=== PATIENT | female | born 1940 | race Caucasian/White ===

== ENCOUNTER → 2017-09-28 | Outpatient (CLI) | payer MEDICARE ==
[~2017-09-28] MED LIST: B-122500 MCG SL; BAYER BACK & B1 EACH PO; DOXE10 PO; GABA100 PO; LORA1 PO; METF500 PO; METO25ER PO; NITR100 PO; VITA25000 PO; VITAMIN B122500 MCG PO; Vitamin A and1 EACH
[2017-09-28 09:44] LABS: Adenovirus F 40/41 Not Detected (NOT DETECT); Astrovirus Not Detected (NOT DETECT); Campylobacter Sp Not Detected (NOT DETECT); Cryptosporidium Not Detected (NOT DETECT); Cyclospora Cayetanensis Not Detected (NOT DETECT); E. Coli O157 Not Detected (NOT DETECT); Entamoeba Histolytica Not Detected (NOT DETECT); Enteroaggregative E. coli-EAEC Not Detected (NOT DETECT); Enteropathogenic E. coli-EPEC Not Detected (NOT DETECT); Enterotoxigenic E. coli-ETEC Not Detected (NOT DETECT); Giardia Lamblia Not Detected (NOT DETECT); Norovirus GI/GII Not Detected (NOT DETECT); Plesiomonas Shigelloides Not Detected (NOT DETECT); Rotavirus A Not Detected (NOT DETECT); Salmonella Sp Not Detected (NOT DETECT); Sapovirus Not Detected (NOT DETECT); Shiga Toxin-prod E. coli-STEC Not Detected (NOT DETECT); Shigella/Enteroin E. coli-EIEC Not Detected (NOT DETECT); Vibrio Cholerae Not Detected (NOT DETECT); Vibrio Sp Not Detected (NOT DETECT); Yersinia Enterocolitica Not Detected (NOT DETECT)
== END | disposition home or self-care (01) ==
LOC: LAB EV 07:30
PROVIDERS: Internal Medicine
DX: R19.7 Diarrhea, unspecified (principal)
CPT/HCPCS: 87507

== ENCOUNTER 2018-12-22 06:48 | Day surgery (SDC) | payer MEDICARE, SELFPAY ==
[~2018-12-22] VITALS: Ht 167.6 cm; Wt 52.4 kg
[~2018-12-22 06:48] MED LIST changes: +ASPI325EC PO; +Ativan1 MG PO; +GABA300 PO; +LORA.5; +VITAMIN D50000 UNIT PO
== END 2018-12-22 09:19 | disposition home or self-care (01) ==
LOC: ORSCSDS 06:48
PROVIDERS: Student in an Organized Health Care Education/Training Program
PROC: 0DBL8ZX Excision of Transverse Colon, Via Natural or Artificial Opening Endoscopic, Diagnostic (ICD-10-PCS; principal; 2018-12-22 08:00)
PROC: 0DBE8ZX Excision of Large Intestine, Via Natural or Artificial Opening Endoscopic, Diagnostic (ICD-10-PCS; principal; 2018-12-22 08:00)
PROC: 0DBK8ZX Excision of Ascending Colon, Via Natural or Artificial Opening Endoscopic, Diagnostic (ICD-10-PCS; principal; 2018-12-22 08:00)
DX: Z12.11 Encounter for screening for malignant neoplasm of colon (principal); Z86.010 Personal history of colon polyps; D12.2 Benign neoplasm of ascending colon; K63.5 Polyp of colon; I10 Essential (primary) hypertension; E11.9 Type 2 diabetes mellitus without complications; Z79.899 Other long term (current) drug therapy
CPT/HCPCS: 82947; 88305; J0330; J0461; J2405; J2704; J7120

== ENCOUNTER 2019-02-12 22:50 | Inpatient (IN) | payer MEDICARE ==
[~2019-02-12] VITALS: Ht 167.6 cm; Wt 56.5 kg
[~2019-02-12 22:50] MED LIST changes: -Ativan1 MG PO; -DOXE10 PO
[2019-02-12 23:56] LABS: BASOPHILS ABSOLUTE AUTO 0.03 K/mm3 (0.00-0.23); BASOPHILS PERCENT AUTO 0 % (0-2); EOSINOPHILS ABSOLUTE AUTO 0.04 K/mm3 (0.00-0.68); EOSINOPHILS PERCENT AUTO 1 % (0-6); Hematocrit 40.3 % (33.0-51.0); Hemoglobin 13.2 g/dL (11.5-16.0); IMMATURE GRAN ABSOLUTE AUTO 0.03 K/mm3 (0.00-0.10); IMMATURE GRAN PERCENT AUTO 0 % (0-1); LYMPHOCYTES ABSOLUTE AUTO 1.45 K/mm3 (0.84-5.20); LYMPHOCYTES PERCENT AUTO 17 % (21-46); MONOCYTES ABSOLUTE AUTO 0.51 K/mm3 (0.16-1.47); MONOCYTES PERCENT AUTO 6 % (4-13); Mean Corpuscular HGB 30.1 pg (26.0-34.0); Mean Corpuscular HGB Conc 32.8 g/dL (31.5-36.5); Mean Corpuscular Volume 92 fL (80-100); Mean Platelet Volume 10.2 fL (9.1-12.4); NEUTROPHILS ABSOLUTE AUTO 6.43 K/mm3 (1.96-9.15); NEUTROPHILS PERCENT AUTO 76 % (41-73); Platelet Count 222 K/mm3 (150-400); RDW Coefficient Variation 12.6 % (11.7-14.2); RDW Standard Deviation 42.8 fL (35.1-46.3); Red Blood Cell Count 4.38 M/mm3 (3.80-5.20); White Blood Cell Count 8.49 K/mm3 (4.00-11.30)
[2019-02-13 00:10] LABS: Anion Gap 5 mmol/L (6-16); Blood Urea Nitrogen 17 mg/dL (8-24); Bun/Creatinine Ratio 27.2 (12.0-20.0); CO2, Blood 28 mmol/L (21-32); Calcium, Blood 8.9 mg/dL (8.5-10.1); Chloride, Blood 107 mmol/L (98-108); Creatinine, Blood 0.63 mg/dL (0.40-1.00); Glomerular Filtration Rate >60 (60-); Glucose, Blood 120 mg/dL (70-99); Potassium, Blood 3.6 mmol/L (3.5-5.5); Sodium, Blood 140 mmol/L (136-145)
[2019-02-13 00:11] LABS: International Normalized Ratio 1.03; Prothrombin Time Results 10.9 Sec (9.7-11.5)
--- NOTE | 2019-02-13 05:08 | NUR ---
SHIFT SUMMARY: DANITZA IS ALERT AND ORIENTED X 4. SHE EXPERIENCED A FALL AT HOME RESULTING IN A LEFT HIP FRACTURE. SHE IS NPO. HER DAUGHTER IS IN THE ROOM WITH HER. 18 G IN LAC PATENT. SHE REPORTS SHE IS SCHEDULED FOR REVASCULARIZATION WITH DR. FITZPATRICK IN MARCH FOR BLE. SHE IS PLEASANT AND COOPERATIVE, ABLE TO MAKE HER NEEDS KNOWN. SHE REPORTS THAT 4 MG MORPHINE IMPROVED HER PAIN FROM 6/10 TO 5/10. FELTON IN PLACE DRAINING CLEAR YELLOW URINE.
--- NOTE | 2019-02-13 14:28 | NUR ---
FEVER INCREASED VEWS DR. KIM NOTIFIED OF TEMP OF 101.7. TYLENOL GIVEN PER DR. KIM FOR FEVER. VEWS SCORE 3, WILL INCREASE MONITORING TO EVERY 2 HOURS.
--- NOTE | 2019-02-13 15:01 | NUR ---
PT TAKEN TO SURGERY AT THIS TIME.
--- NOTE | 2019-02-13 18:47 | NUR ---
PT ARRIVED BACK TO THE ROOM AT APPROXIMATELY 1825. PT ORIENTED AND RESPONDS APPROPRIATELY TO QUESTIONS, SHE IS DROWSY. VSS. WILL CONTINUE TO MONITOR.
--- NOTE | 2019-02-13 19:25 | NUR ---
NAUSEA PT REPORTING NAUSEA. TOM NURSE PRACTITIONER NOTIFIED, ORDERS TO BE PLACED.
--- NOTE | 2019-02-13 19:35 | NUR ---
SHIFT SUMMARY PT HAS BEEN ORIENTED AND STABLE POST OP. VSS. REPORT GIVEN TO SUSANA KNOWLES.
--- NOTE | 2019-02-14 02:55 | NUR ---
PT C/O NAUSEA TONIGHT, HAD ZOFRAN WITH REPORT INEFFECTIVE.HOWEVER REFUSED FURTHER OFFERS T0 OBTAIN DIFFERENT MED. PT ALSO REFUSING PAIN MEDS.DID RECEIVE ATIVAN PER HER REQUEST SHE TAKES IT ROUTINELY AT HOME.AT THIS TIME, PT HEARD MOANING,I IMMEDIATELY WENT TO ROOM AND FOUND PT MOVING SELF IN BED TRYING TO GET SELF OOB FOR BRP.FAMILY HAD BEEN STAYING IN ROOM,BUT NOT PRESENT AT THIS TIME.REMINDED PT OF SURGERY AND NEED TO HAVE HELP WITH OOB FOR SAFETY. CORPORATE CONCIERGE AND THIS RN ASSISTED PT TO BSC. PT WITH C/O INCREASED NAUSEA WHEN UP. FINALLY AGREED TO ACCEPT SOMETHING ELSE FOR NAUSEA. I PLACED CALL OUT TO DR QUINTERO, WAITING RETURN CALL.PT BACK TO BED AFTER BSC WITH BED ALARM ON.PT ALSO C/O ITCHING AT THIS TIME.
--- NOTE | 2019-02-14 03:21 | NUR ---
RETURN CALL PER DR QUINTERO. NOTIFIED OF CONTINUED NAUSEA. ALSO NOTIFIED OF ITCHING WHICH PT NOW REPORTS BASELINE.SINCE INITIAL CALL OUT TO DR QUINTERO,NOTED PT WITH O2 OFF.NO C/O SOB, BUT RA SATS 82-84 %, ALSO C/O ACHING TO L SIDE AND SURG SITE.NOTIFIED DR QUINTERO OF THIS WELL.RECEIVED ORDERS FOR REGLAN.CONTINUES TO REFUSE PAIN MEDS DUE TO CONCERNS OF C/O CONSTIPATION.I DISCUSSED THIS WITH PT AND SHE CONT TO REFUSE PAIN MEDS.
--- NOTE | 2019-02-14 06:38 | NUR ---
SUMMARY WITH USE OF REGLAN IV, REPORTED IMPROVEMENT IN NAUSEA UNTIL PT WOKE AND OOB. PT ACCEPTED MORPHINE FOR PAIN WITH REPORTED IMPROVEMENT/SLEEP UNTIL WOKE THEN INCREASED PAIN. PT REPORTS HEADACHES BASELINE, BUT STATES HEADACHES WORSE HERE THAN AT HOME. PUPILS REMAIN EQUAL AND REACTIVE TO LIGHT. PT AMBULATORY FOR VOIDING WITH NET TECHNICAL ARCHITECT ASSIST/GAIT BELT/WALKER, ALTHOUGH INCREASE IN GENERALIZED WEAKNESS NOTED WHEN UP.PT UNABLE TO SPECIFY IF SHE HIT HEAD OR L SIDE/RIBS WITH FALL.PTS DAUGHTER ALSO REQUESTING PO PAIN MEDS. I SPOKE WITH DR QUINTERO REGARDING ABOVE. DOCTOR ORDERED FENTANYL IV AND STATED AM HOSPITALIST WILL FOLLOW UP ON BALANCE OF CONCERNS.
--- NOTE | 2019-02-14 07:56 | NUR ---
02/14/19 0756 Carissa Phillips VERIFICATIONS, AUDITS.
[2019-02-14] MEDS ORDERED: VITAMIN D22000 UNIT PO (10:38)
[2019-02-14] MEDS ORDERED: GABA300 PO (10:45)
--- NOTE | 2019-02-14 15:47 | NUR ---
NAUSEA NAUSEA HAS SUBSIDED T/O THE DAY. PT HAS BEEN ABLE TO TOLERATE FOOD AND FLUIDS SINCE HAVING PHENERGAN AND SWITCHING TO PO PAIN MEDICATION. PT NO LONGER BECOMES NAUSEATED WHEN GETTING OOB.
--- NOTE | 2019-02-14 16:22 | NUR ---
SHIFT SUMMARY PAIN HAS BEEN MANAGED WITH PO PAIN MEDICATION THIS SHIFT. NAUSEA HAS BEEN RESOLVED AFTER PT HAD IV PHENERGAN. SHE IS A 2 PERSON ASSIST WITH TRANFERS AND WAS ABLE TO WORK WITH THERAPY TODAY. FAMILY HAS BEEN AT THE BEDSIDE FOR SUPPORT. PT HAS BEEN WEANED OFF O2. PLAN FOR SNF UPON DISCHARGE. VSS. WILL MONITOR UNTIL REPORT.
--- NOTE | 2019-02-14 18:25 | NUR ---
REPORT RECIEVED FROM BENSON RASHID AT ABOUT 1700. PT HOLLY, WILL GIVEN REPORT TO BERYL KNOWLES
--- NOTE | 2019-02-15 01:45 | NUR ---
ASSUMED CARE FROM DIANE KNOWLES. RECEIVED REPORT. PT CURRENTLY SLEEPING IN SEMI FOWLERS. CALL LIGHT IN REACH. BED ALARM ON.
--- NOTE | 2019-02-15 05:42 | NUR ---
SHIFT SUMMARY NO CHANGES SINCE ASSUMING CARE. PATIENT HAS BEEN SLEEPING IN BED, DENIES PAIN AT THIS TIME. PATIENT AWAKENS AND ANSWERS QUESTIONS APPROPRIATLY. CALL LIGHT IN REACH, BED ALARM ON.
[2019-02-15] MEDS ORDERED: TRIFLURIDINE 1% BOTHEYES (11:52)
--- NOTE | 2019-02-15 18:40 | NUR ---
SHIFT NOTE PATIENT STATES L HIP PAIN TOLERABLE WITH PO PAIN MED. DECLILNED NEURONTIN, "IT MAKES ME SLEEPY, I DONT WANT TO TAKE IT WITH THE PAIN MED.' CIRC CHECKS TO LLE WNL. PATIENT UP WITH FWW, GB, MIN ASSIST TO BR. VOIDING. TOLERATING PO W/O C/O. DR FITZPATRICK LEFT CONSENT FOR PROCEDURE WITH PATIENT THIS AFTERNOON; PATIENT SIGNED AND I WITNESSED. PLAN FOR NPO AFTER 2400 IN ANTICIPATION OF PROCEDURE. FAMILY IN MOST OF SHIFT. NO ACAUTE CHANGES.
--- NOTE | 2019-02-16 05:07 | NUR ---
SHIFT SUMMARY PATIENT HAS BEEN ABLE TO GET OOB WITH ASSISTANCE AND AMBULATE TO BR WITH FWW AND GAIT BELT. CONTINUES TO HAVE PAIN IN HER LT HIP WITH MOVEMENT. ABLE TO VOID, NO SIGNIFICANT BM SINCE PRIOR TO ADMISSION. PT STATED THAT "BM" FROM YESTERDAY WAS VERY SMALL. HER SCDS HAVE BEEN OFF SINCE 2AM, STATED THAT THEY WERE ITCHING HER AND THAT SHE WANTED A BREAK FROM THEM. WE HAVE HAD ICE ON HER LT HIP WHILE SHE IS IN BED. PATIENT HAS BEEN ASLEEP SINCE 2AM AFTER PAIN MEDICATION. NO ACUTE CHANGES.
--- NOTE | 2019-02-16 14:30 | NUR ---
PATIENT TO HEART CENTER FOR PROCEDURE AT THIS TIME. FAMILY HERE.
--- NOTE | 2019-02-16 18:44 | NUR ---
PT TO ICU VIA BED FROM THE HEART CENTER. 15CM X 27CM HEMATOMA PRESENT IN LEFT GROIN. MANUAL PRESSURE TO AREA FOR APPROX 1 HOUR POST PROCEDURE. AREA CONTINUES TO BE FIRM TO THE TOUCH, WITH BRUISING MARGINS INCREASING. DR FITZPATRICK AWARE OF STATUS OF LEFT GROIN SITE. BOTTLE CAPPER'S TO HOLD ADDITIONAL PRESSURE TO SITE. RIGHT GROIN SITE SOFT AND NON-TENDER. NO BRUISING OR BLEEDING NOTED.
--- NOTE | 2019-02-16 19:12 | NUR ---
ARRIVAL TO ICU/HANDOFF 1814 - PT ARRIVES TO ICU FROM RF TECHNICIAN. SHE IS ORIENTED TO PERSON AND PLACE. ARRIVES WITH STABLE BP WITH MAP 75-80 AND NSR, HR 90S. LARGE HEMATOMA TO L GROIN; AREA IS MARKED WITH PEN AND SKIN IS HARD TO TOUCH AND COLD. SPOKE WITH MD FITZPATRICK WHO ASKED THAT GENTLE PRESSURE HELD RIGHT ABOVE TAGADERM SEAL AND MONITOR CLOSELY FOR HARDENING OF SKIN. PRESSURE BEING HELD AT THIS TIME. PEDAL PULSES DIFFICULT TO FIND PT HAS HX OF RAYNAUDS; WILL INQUIRE FURTHER. HIP SURGICAL DRESSING IS CLEAN AND DRY. BEDSIDE, HANDOFF REPORT TO KOMAL KNOWLES AND DURING REPORT, PRESSURE BEING HELD ON L GROIN AND BP TRENDS DECLINING. CURRENTLY 60S/40S; SPOKE WITH MD FITZPATRICK AND VERBAL ORDER TO INFUSE 500 ML NS BOLUS. FELTON CATHETER INSERTED AT ARRIVAL. CARE TRANSFERRED TO KOMAL KNOWLES.
[2019-02-16 19:13] LABS: Hematocrit 29.2 % (33.0-51.0); Hemoglobin 9.3 g/dL (11.5-16.0)
--- NOTE | 2019-02-16 20:00 | NUR ---
ASSUMED CARE OF PT AT 1900. REPORT RECEIVED AT BEDSIDE. NOTED: PRESSURE BEING HELD TO LEFT GROIN ACCESS SITE BY STUDENT RN. OBSERVED GOOD TECHNIQUE. PT'S BLOOD PRESSURE DROPS AND PT SYMPTOMATIC WITH NAUSEA AND FEELING "SHAKY". BOLUS STARTED WHEREAS PT RECOVERS BLOOD PRESSURES ADEQUATELY. NO DROP IN HEART RATE TO NOTE. PT'S DAUGHTER IN ROOM, AND UPDATED ON PT'S CONDITION. DR FITZPATRICK MADE AWARE AND IS TO COME SEE PT. WILL CLOSELY MONTIOR.
--- NOTE | 2019-02-16 21:15 | NUR ---
GROIN SITE STABLE WHEREAS NO S/S BLEEDING. HAVE MAPPED OUT SHADOW DRAINAGE OVER CHG BANDAGE TO GROIN. EXISTING HEMATOMA GENTLY REDUCED WITH PRESSURE. PT TOLERATES THIS FAIR. PT DOES COMPLAIN OF BACK PAIN AT LEFT SIDE. WITH FURTHER ASSESSMENT, PT INDICATES HER PAIN IS AT LEFT HIP WHERE SHE HAS RECENTLY HAD HIP SURGERY. ICE PACK PLACED TO LEFT HIP SITE. DOPPLER PULSES DIFFICULT TO OBTAIN. DR FITZPATRICK USES DOPPLER TO OBTAIN PULSE. WILL CONTINUE TO MONITOR PT. DISCUSSED PT'S HS MEDICATIONS AND PLAN FOR BENADRYL AND ATIVAN TO HELP PT RELAX SO SHE CAN GET SOME REST TONIGHT. PT AND FAMILY ARE IN AGREEMENT WITH PLAN.
--- NOTE | 2019-02-17 02:16 | NUR ---
PT RESTING COMFORTABLY AT THIS TIME. HAVE MEDICATED PT TWICE WITH 12.5 MCG FENTANYL FOR PAIN WITH GOOD RELIEF. PT'S BLOOD PRESSURES MAINTAIN WNL AFTER FENTANYL. DAUGHTER SPENDING THE NIGHT WITH PT. ACCORDING TO FAMILY PT USES ATIVAN AT HOME DAILY SECONDARY TO ANXIETY. HAVE REASSURED PT OFTEN. PT HAS COMPLETED SIX HOURS POST GROIN BEING STABILIZE. HEMOSTATIS ACHIEVED. HAVE INSTRUCTED PT THAT SHE CAN NOW MOVE IN BED SHE FEELS. INSTRCUTED PT AND DAUGHTER IF ANY BLEEDING OCCURS, SWELLING AT GROIN SITE. LOSS OF SENSATION TO LEFT LEG OR ANY OTHER CONCERNS TO NOTIFY STAFF IMMEDIATELY. CHECK OF GROIN SITE REVEALS STABLE. PT DOES HAVE GROIN ECCHYMOSIS BUT NO NEW HEMATOMA. NO OOZING AT SITE. WILL CONITNUE TO MONITOR PT.
--- NOTE | 2019-02-17 06:53 | NUR ---
PT HAS HAD NO REBLEEDS THIS NIGHT. HAS BEEN MEDICATED WITH 12.5 MCG FENTANYL TWICE WITH FAIR RELIEF. ONCE THIS MORNING WITH 25 MCG FENTANYL. PT CURRENTLY RESTING. IS MAINTAINING BLOOD PRESSURES WITH MAP > 65. REMAINS WITH POST-TIBIAL DOPPLER PULSE, UNABLE TO OBTAIN PEDAL PULSE. THIS IS UNCHANGED FROM WHEN DR FITZPATRICK ASSESSED LATE EVENING. NO OOZING AT SITES LEFT OR RIGHT GROIN. DAUGHTER HAS SPENT THE NIGHT. WILL CONTINUE TO MONITOR PT.
--- NOTE | 2019-02-17 07:37 | NUR ---
DR. GALVEZ AT BEDSIDE FOR ROOUNDS. PT'S DAUGHTER ADRIAN ALSO AT BEDSIDE. PROVIDER DISCUSSING DICHARGE TO SNF TODAY, DAUGHTER FEELS THAT IT IS TOO SOON FOR PT TO BE D/C'D, CONSIDERING PROCEDURES AND HYPOTENSION O/N. WILL CHECK LABS THIS MORNING, DR. BOYD WILL ROUND LATER.
[2019-02-17 08:19] LABS: Hematocrit 22.8 % (33.0-51.0); Hemoglobin 7.4 g/dL (11.5-16.0)
[2019-02-17 08:52] LABS: Albumin, Blood 2.5 g/dL (3.4-5.0); Anion Gap 6 mmol/L (6-16); Blood Urea Nitrogen 10 mg/dL (8-24); Bun/Creatinine Ratio 21.4 (12.0-20.0); CO2, Blood 25 mmol/L (21-32); CPK Creatine Kinase 183 U/L (26-193); Calcium, Blood 7.2 mg/dL (8.5-10.1); Chloride, Blood 110 mmol/L (98-108); Creatinine, Blood 0.47 mg/dL (0.40-1.00); Glomerular Filtration Rate >60 (60-); Glucose, Blood 120 mg/dL (70-99); Phosphorus, Blood 2.6 mg/dL (2.5-4.9); Potassium, Blood 3.9 mmol/L (3.5-5.5); Sodium, Blood 141 mmol/L (136-145)
--- NOTE | 2019-02-17 09:53 | NUR ---
FELTON CATHETER D/C'D AT 0940, TOLERATED WELL.
--- NOTE | 2019-02-17 15:46 | NUR ---
PATIENT TRANSFERRED TO ROOM 213 VIA HOSPITAL BED AT 1535. REPORT GIVEN TO LEDA KNOWLES.
[2019-02-17 16:28] LABS: Hematocrit 28.4 % (33.0-51.0); Hemoglobin 9.2 g/dL (11.5-16.0)
--- NOTE | 2019-02-17 16:43 | NUR ---
ARRIVAL TO UNIT AT APPROX 1550 PT IS ALERT AND ORIENTED AND PLEASANT. PT REPORTED 8/10 PAIN TO HER LEFT LEG GROIN SITE AND WAS MEDICATED WITH 2 NORCO. LEFT GROIN SITE WAS OUTLINED BY COMMUNICATIONS ADMINISTRATOR AND NO INCREASED BRUISING IS NOTED. R GROIN SITE IS CDI. AQUACEL DRESSING TO LEFT HIP IS CDI. ENCOURAGING PT TO DRINK FLUIDS. PLAN IS FOR POSSIBLE SNF DISCHARGE TOMORROW. CALL LIGHT WITHIN REACH. FAMILY AT BEDSIDE FOR SUPPORT.
[2019-02-18 04:08] LABS: Hemoglobin 8.1 g/dL (11.5-16.0)
--- NOTE | 2019-02-18 04:16 | NUR ---
Patient A/O x4. VSS. Complaints of pain to Bilat thigh, medicated as ordered. Strong Posterior tibial pulse, but Unable to obtain pedal pulse on left foot with doppler. Patient complains of numbness to bilateral lower extremeties. Pulses strong in RLE. Patient up to Bedside commode with SBA and FWW. Voiding freely.
[2019-02-18 10:14] LABS: Hemoglobin 8.4 g/dL (11.5-16.0)
[2019-02-18 18:43] LABS: Hematocrit 27.1 % (33.0-51.0); Hemoglobin 8.7 g/dL (11.5-16.0)
--- NOTE | 2019-02-18 19:28 | NUR ---
SHIFT SUMMARY PAIN HAS BEEN MANAGED WITH PO PAIN MEDICATION. PT IS A 1 ASSIST WHEN OOB. SHE WORKED WITH THERAPY TODAY. VSS. WILL MONITOR UNTIL REPORT TO ONCOMING RN.
[2019-02-19 02:18] LABS: Hematocrit 25.5 % (33.0-51.0); Hemoglobin 8.2 g/dL (11.5-16.0)
--- NOTE | 2019-02-19 03:32 | NUR ---
Patient displaying confusion, attempting to get up without assistance. Placed on bed alarm. VSS. Complaints of pain to hip, itching, and anxiety; medicated as ordered. Up to bedside commode with SBA and FWW. Aquacell dressing DCI. Dressing to R thigh DCI, Dressing to L thigh has scant blood. Able to palpate bilateral pedal pulses.
--- NOTE | 2019-02-19 18:11 | NUR ---
SUMMARY C/O NAUSEA BEFORE DINNER, CBG 49, ORANGE JUICE GIVEN, PT ENCOURAGED TO EAT, PT VOMITTED, ZOFRAN GIVEN, PT CURRENTLY EATING A POPSICLE, REFUSED ANY OTHER FOODS TO EAT, CBG RECHECKED, CURRENTLY AT 151, DENIES ANY OTHER NEW SYMPTOMS OR DISCOMFORT, OOB TO CHAIR MOST OF THE DAY, 1 PERSON ASSIST TO THE BSC, PAIN MOSTLY ON L GROIN AREA, REPORTS HAVING ADEQUATE PAIN CONTROL WITH 2 NORCOS, NO OTHER CHANGES THIS SHIFT.
[2019-02-20 03:43] LABS: Hemoglobin 8.1 g/dL (11.5-16.0)
--- NOTE | 2019-02-20 04:01 | NUR ---
SHIFT SUMMARY PT [id number], PLACED ON 3L OF 02 R/T LOW SATS. SATS IN THE 90'S AFTER 3L. PATIENT C/O OF SOME PAIN ON EXERTION, DENIES PAIN WHILE RESTING. COMPLAINTS OF FEELING ANXIOUS EARLY IN SHIFT MEDICATED WITH ATIVAN PER EMAR. PATIENT TRANSFERING TO [facility] WITH MINIMAL 1 ASSIST. LARGE BRUISING ON LEFT FLANK/GROIN PRESENT SINCE REVASCULARIZATION. PATIENT ATTEMPTING TO GET OUT OF BED ON HER OWN DURING SHIFT, BED ALARM SPACE AND MISSILE OPERATIONS SPACELIFT LIGHT IN REACH.
[2019-02-20 04:04] LABS: Anion Gap 5 mmol/L (6-16); Blood Urea Nitrogen 8 mg/dL (8-24); CO2, Blood 32 mmol/L (21-32); Calcium, Blood 8.1 mg/dL (8.5-10.1); Chloride, Blood 103 mmol/L (98-108); Glomerular Filtration Rate >60 (60-); Glucose, Blood 136 mg/dL (70-99); Potassium, Blood 3.7 mmol/L (3.5-5.5); Sodium, Blood 140 mmol/L (136-145)
--- NOTE | 2019-02-20 04:33 | NUR ---
TEMP TEMP OF 100.6 AND ELEVATED HR DURING MORNING VITALS. TYLENOL GIVEN AND PATIENT REPOSITIONED. CONPLAINS OF FEELING HOT. WILL MONITOR FOR EFFECTIVENESS OF TYLENOL
--- NOTE | 2019-02-20 05:06 | NUR ---
TEMP OF 98.6 AFTER TYLENOL GIVEN. PATIENT RESTING IN BED, DENIES NEEDS AT THIS TIME.
[2019-02-20 10:31] LABS: BASOPHILS ABSOLUTE AUTO 0.03 K/mm3 (0.00-0.23); BASOPHILS PERCENT AUTO 0 % (0-2); EOSINOPHILS ABSOLUTE AUTO 0.08 K/mm3 (0.00-0.68); EOSINOPHILS PERCENT AUTO 1 % (0-6); Hematocrit 25.7 % (33.0-51.0); Hemoglobin 8.2 g/dL (11.5-16.0); IMMATURE GRAN ABSOLUTE AUTO 0.03 K/mm3 (0.00-0.10); IMMATURE GRAN PERCENT AUTO 0 % (0-1); LYMPHOCYTES ABSOLUTE AUTO 1.28 K/mm3 (0.84-5.20); LYMPHOCYTES PERCENT AUTO 14 % (21-46); MONOCYTES ABSOLUTE AUTO 0.95 K/mm3 (0.16-1.47); MONOCYTES PERCENT AUTO 10 % (4-13); Mean Corpuscular HGB 30.6 pg (26.0-34.0); Mean Corpuscular HGB Conc 31.9 g/dL (31.5-36.5); Mean Platelet Volume 10.8 fL (9.1-12.4); NEUTROPHILS ABSOLUTE AUTO 6.86 K/mm3 (1.96-9.15); NEUTROPHILS PERCENT AUTO 74 % (41-73); Platelet Count 288 K/mm3 (150-400); RDW Coefficient Variation 14.2 % (11.7-14.2); RDW Standard Deviation 47.3 fL (35.1-46.3); Red Blood Cell Count 2.68 M/mm3 (3.80-5.20); White Blood Cell Count 9.23 K/mm3 (4.00-11.30)
--- NOTE | 2019-02-20 10:31 | NUR ---
DISCUSSED PT'S STATUS WITH DR YADAV. PT BEING PAINFULL AND NAUSEOUS BUT DOES NOT WISH TO TAKE OR HAVE ANYTHING FOR EITHER.
[2019-02-20 10:32] LABS: Mean Corpuscular Volume 96 fL (80-100)
[2019-02-20 12:57] LABS: Source, Urine Voided
[2019-02-20 12:58] LABS: Bilirubin, Urine Neg (Neg); Blood, Urine 2+ (Neg); Glucose Qualitative, Urine Neg (Neg); Ketones, Urine Neg (Neg); Leukocyte Esterase, Urine Neg (Neg); Nitrite, Urine Neg (Neg); Protein, Urine Neg (Neg); Urobilinogen, Urine NORM (Normal)
[2019-02-20 13:16] LABS: Appearance, Urine Clear (Clear); Color, Urine Yellow (P-Yellow)
[2019-02-20 13:20] LABS: Amorphous Mod (0-Heavy); Bacteria Mod /hpf; Squamous Epithelial Cells Rare /hpf (Few)
--- NOTE | 2019-02-20 15:28 | NUR ---
REPORT GIVEN TO HELENA AT [facility]
--- NOTE | 2019-02-20 16:10 | NUR ---
DISCHARGE: PT EATING AND DRINKING BETTER THIS AFTERNOON. PT REPORTS DRINKING WELL. PT VOIDING. PT BEEN GIVEN BOWEL CARE. PT HAD RECENT BM. PT HAS PROTECTIVE DRESSINGS TO HEELS. NO SORE NOTED ON BOTTOM EARLIER TODAY. FAMILY PRESENT. PT OUT BY TRANSPORT, FAMILY REPORTS WILL TAKE BELONGINGS. CIVIL ENGINEER HELPER ASSISTED WITH DISCHARGE. TRANSPORT SENT WITH PAPERWORK AND DRESSINGS.
== END 2019-02-20 16:04 | disposition home or self-care (01) | DRG 481 ==
LOC: ER 22:50 → SURS 02-13 03:17 → ICUE 02-16 16:37 → SURS 02-17 15:58
PROVIDERS: Emergency Medicine; Hospitalist; Internal Medicine; Orthopaedic Surgery; Radiology Diagnostic Radiology; ADMIT Internal Medicine
PROC: 0QS734Z Reposition Left Upper Femur with Internal Fixation Device, Percutaneous Approach (ICD-10-PCS; principal; 2019-02-13 15:45)
PROC: 047J3DZ Dilation of Left External Iliac Artery with Intraluminal Device, Percutaneous Approach (ICD-10-PCS; 2019-02-16)
PROC: 047D3DZ Dilation of Left Common Iliac Artery with Intraluminal Device, Percutaneous Approach (ICD-10-PCS; 2019-02-16)
PROC: 047F3DZ Dilation of Left Internal Iliac Artery with Intraluminal Device, Percutaneous Approach (ICD-10-PCS; 2019-02-16)
PROC: 30233N1 Transfusion of Nonautologous Red Blood Cells into Peripheral Vein, Percutaneous Approach (ICD-10-PCS; 2019-02-17)
DX: S72.002A Fracture of unspecified part of neck of left femur, initial encounter for closed fracture (principal); D62 Acute posthemorrhagic anemia; W19.XXXA Unspecified fall, initial encounter; I10 Essential (primary) hypertension; F17.210 Nicotine dependence, cigarettes, uncomplicated; E11.51 Type 2 diabetes mellitus with diabetic peripheral angiopathy without gangrene; R09.02 Hypoxemia
CPT/HCPCS: 36415; 36430; 37221; 37223; 51702; 71046; 73502; 73562-LT; 73700; 75625; 75716; 75774; 76937; 80048; 80069; 81001; 82550; 82565; 82947; 83036; 85014; 85018; 85025; 85610; 86850; 86900; 86901; 86923; 87086; 93005; 93010; 96374-59; 96375-59; 96376; 97110; 97116; 97162; 97165; 97530; 97535; 99152; 99153; 99285-25; A9270; A9270-GY; C1713; C1725; C1760; C1769; C1773; C1874; C1876; C1887; C1894; J0171; J0690; J1100; J1644; J1650; J1940; J2060; J2250; J2270; J2405; J2550; J2704; J2720; J2765; J3010; J3480; J7030; J7120; P9016; Q0163; Q9967

== ENCOUNTER 2019-02-22 09:06 | Inpatient (IN) | payer MEDICARE, OTHER ==
[~2019-02-22] VITALS: Ht 167.6 cm; Wt 58.0 kg
[~2019-02-22 09:06] MED LIST changes: +TRIFLURIDINE 1% BOTHEYES; +VITAMIN D22000 UNIT PO
[2019-02-22] MEDS ORDERED: DOXE10 PO ×2 (09:21→14:58)
[2019-02-22] MEDS ORDERED: ASPI81CH PO (09:21)
[2019-02-22] MEDS ORDERED: CEPH250A PO ×2 (09:22→14:50)
[2019-02-22] MEDS ORDERED: GABA300 PO ×2 (09:24→09:32)
[2019-02-22] MEDS ORDERED: LORA.5 PO (09:32)
[2019-02-22] MEDS ORDERED: Acetaminophen650 M1 PO (09:34)
[2019-02-22 10:11] LABS: BASOPHILS ABSOLUTE AUTO 0.03 K/mm3 (0.00-0.23); BASOPHILS PERCENT AUTO 0 % (0-2); EOSINOPHILS ABSOLUTE AUTO 0.11 K/mm3 (0.00-0.68); EOSINOPHILS PERCENT AUTO 1 % (0-6); Hematocrit 25.7 % (33.0-51.0); Hemoglobin 8.1 g/dL (11.5-16.0); IMMATURE GRAN ABSOLUTE AUTO 0.04 K/mm3 (0.00-0.10); IMMATURE GRAN PERCENT AUTO 1 % (0-1); LYMPHOCYTES PERCENT AUTO 12 % (21-46); MONOCYTES PERCENT AUTO 9 % (4-13); Mean Corpuscular HGB 29.6 pg (26.0-34.0); Mean Corpuscular HGB Conc 31.5 g/dL (31.5-36.5); Mean Corpuscular Volume 94 fL (80-100); Mean Platelet Volume 9.5 fL (9.1-12.4); NEUTROPHILS ABSOLUTE AUTO 6.73 K/mm3 (1.96-9.15); NEUTROPHILS PERCENT AUTO 77 % (41-73); Platelet Count 352 K/mm3 (150-400); RDW Coefficient Variation 14.3 % (11.7-14.2); RDW Standard Deviation 47.4 fL (35.1-46.3); Red Blood Cell Count 2.74 M/mm3 (3.80-5.20); White Blood Cell Count 8.71 K/mm3 (4.00-11.30)
[2019-02-22 10:20] LABS: Anion Gap 5 mmol/L (6-16); Blood Urea Nitrogen 7 mg/dL (8-24); Bun/Creatinine Ratio 14.3 (12.0-20.0); CO2, Blood 29 mmol/L (21-32); Calcium, Blood 8.1 mg/dL (8.5-10.1); Chloride, Blood 107 mmol/L (98-108); Creatinine, Blood 0.49 mg/dL (0.40-1.00); Glomerular Filtration Rate >60 (60-); Glucose, Blood 123 mg/dL (70-99); Potassium, Blood 3.9 mmol/L (3.5-5.5); Sodium, Blood 141 mmol/L (136-145)
[2019-02-22] MEDS ORDERED: Ventolin/Prove6.7 GM (13:57)
[2019-02-22] MEDS ORDERED: ERGO50000 PO (14:00)
[2019-02-22] MEDS ORDERED: DOCU100 PO (14:52)
[2019-02-22] MEDS ORDERED: Nicoderm Cq1 EAC1 TD (14:53)
[2019-02-22] MEDS ORDERED: BISA10S PR (14:57)
[2019-02-22] MEDS ORDERED: Norco 7.5-3251 EACH PO (14:59)
[2019-02-22] MEDS ORDERED: Milk Of Ma400 MG/5 M PO (15:00)
[2019-02-22] MEDS ORDERED: Fleet Enema132 ML PR (15:01)
--- NOTE | 2019-02-22 19:38 | NUR ---
PT QUITE PLEASANT SINCE ADMIT. MED FOR PAIN AFTER ADMIT.. ISIDRO FROM ER STATES HE SPOKE TO DR BOYD AND IS DOING INTERVENTION TOMORROW. NPO MIDNITE UNTIL KNOW WHEN INTERVENTION. HEMATOMA ON LEFT LEG AT GROIN SITE. IS MARKED. SHE JUST WAS D/C 1-2 DAYS AGO. SITE IS HARD. BRUISED. PIC TO BE TAKEN. NO OTHER CONCERNS AT THIS TIME. BED IN LOW POSITION ,CALL LITE IN [facility], CALLS APPROP
--- NOTE | 2019-02-23 00:02 | NUR ---
0002: PT MADE NPO IN ANTICIPATION OF PROCEDURE LATER THIS DAY. CALL LIGHT IN REACH, SLEEPING SOUNDLY.
[2019-02-23 07:07] LABS: BASOPHILS ABSOLUTE AUTO 0.03 K/mm3 (0.00-0.23); BASOPHILS PERCENT AUTO 0 % (0-2); EOSINOPHILS PERCENT AUTO 1 % (0-6); Hematocrit 27.8 % (33.0-51.0); Hemoglobin 8.5 g/dL (11.5-16.0); IMMATURE GRAN ABSOLUTE AUTO 0.03 K/mm3 (0.00-0.10); IMMATURE GRAN PERCENT AUTO 0 % (0-1); LYMPHOCYTES ABSOLUTE AUTO 1.23 K/mm3 (0.84-5.20); LYMPHOCYTES PERCENT AUTO 17 % (21-46); MONOCYTES ABSOLUTE AUTO 0.77 K/mm3 (0.16-1.47); MONOCYTES PERCENT AUTO 11 % (4-13); Mean Corpuscular HGB Conc 30.6 g/dL (31.5-36.5); Mean Corpuscular Volume 95 fL (80-100); Mean Platelet Volume 9.4 fL (9.1-12.4); NEUTROPHILS PERCENT AUTO 71 % (41-73); Platelet Count 403 K/mm3 (150-400); RDW Coefficient Variation 14.2 % (11.7-14.2); RDW Standard Deviation 47.3 fL (35.1-46.3); Red Blood Cell Count 2.93 M/mm3 (3.80-5.20); White Blood Cell Count 7.36 K/mm3 (4.00-11.30)
[2019-02-23 07:21] LABS: International Normalized Ratio 1.03; Prothrombin Time Results 10.9 Sec (9.7-11.5)
[2019-02-23 07:28] LABS: Alanine Aminotransfer (ALT/SGP 17 U/L (12-78); Albumin, Blood 2.6 g/dL (3.4-5.0); Albumin/Globulin Ratio 0.7 (0.8-1.8); Alk Phos 75 U/L (50-136); Anion Gap 8 mmol/L (6-16); Aspartate Aminotrans (AST/SGOT 19 U/L (12-37); Bilirubin, Total 0.7 mg/dL (0.1-1.0); Blood Urea Nitrogen 8 mg/dL (8-24); Bun/Creatinine Ratio 15.9 (12.0-20.0); CO2, Blood 28 mmol/L (21-32); Calcium, Blood 8.4 mg/dL (8.5-10.1); Chloride, Blood 105 mmol/L (98-108); Globulin, Blood 3.9 g/dL (2.2-4.0); Glomerular Filtration Rate >60 (60-); Glucose, Blood 121 mg/dL (70-99); Potassium, Blood 3.9 mmol/L (3.5-5.5); Sodium, Blood 141 mmol/L (136-145); Total Protein, Blood 6.5 g/dL (6.4-8.2)
[2019-02-23 13:32] LABS: Hematocrit 27.6 % (33.0-51.0); Hemoglobin 8.7 g/dL (11.5-16.0)
--- NOTE | 2019-02-23 14:15 | NUR ---
RETURNED FROM LUNCH BREAK AND PT HAD BEEN PICKED UP BY HEART CENTER STAFF AND TRANSFERED TO [facility]. CALLED PCU NURSE KAROLINA TO ATTEMPT TO GIVE REPORT. AWAITING RETURN CALL.
--- NOTE | 2019-02-23 14:33 | NUR ---
REPORT GIVEN TO BENSON TURCIOS IN PCU.
[2019-02-23 16:52] LABS: BASOPHILS ABSOLUTE AUTO 0.03 K/mm3 (0.00-0.23); BASOPHILS PERCENT AUTO 0 % (0-2); EOSINOPHILS ABSOLUTE AUTO 0.06 K/mm3 (0.00-0.68); EOSINOPHILS PERCENT AUTO 1 % (0-6); Hematocrit 25.4 % (33.0-51.0); Hemoglobin 7.8 g/dL (11.5-16.0); IMMATURE GRAN ABSOLUTE AUTO 0.04 K/mm3 (0.00-0.10); IMMATURE GRAN PERCENT AUTO 1 % (0-1); LYMPHOCYTES ABSOLUTE AUTO 1.29 K/mm3 (0.84-5.20); LYMPHOCYTES PERCENT AUTO 16 % (21-46); MONOCYTES ABSOLUTE AUTO 0.63 K/mm3 (0.16-1.47); MONOCYTES PERCENT AUTO 8 % (4-13); Mean Corpuscular HGB 29.3 pg (26.0-34.0); Mean Corpuscular HGB Conc 30.7 g/dL (31.5-36.5); Mean Corpuscular Volume 96 fL (80-100); Mean Platelet Volume 9.4 fL (9.1-12.4); NEUTROPHILS ABSOLUTE AUTO 5.92 K/mm3 (1.96-9.15); NEUTROPHILS PERCENT AUTO 74 % (41-73); Platelet Count 439 K/mm3 (150-400); RDW Standard Deviation 48.6 fL (35.1-46.3); Red Blood Cell Count 2.66 M/mm3 (3.80-5.20); White Blood Cell Count 7.97 K/mm3 (4.00-11.30)
--- NOTE | 2019-02-23 18:30 | NUR ---
PT ARRIVED FROM AT 1703 VIA HOSPITAL BED. FTF REPORT RECEIVED FROM BOONE KNOWLES. C/O 01/26 PAIN IN LLE; MEDICATED WITH FENTANYL AND PERCOCET WITH MODERATE EFFECT. R GROIN SITE SOFT, NO HEMATOMA, NO BLEEDING. PREVIOUS L HEMATOMA UNCHANGED PER PATIENT AND FAMILY REPORT; HEMATOMA IS FIRM WITH SURROUNDING ECCHYMOSIS IN GROIN, INNER THIGH, L THIGH, AND UP BACK ON L SIDE. NSR, HR 80-100. LLE PT PULSE FOUND BY DOPPLER, THREADY AND MONOPHASIC, FOOT COOL TO TOUCH WITH CALF SLIGHTLY WARMER, SKIN PALE. ANTICIPATING ORDER FOR HEPARIN GTT. ORDER ENTERED FOR 2 UNITS PRBC TRANSFUSION FOR HGB < 8. FAMILY AT BEDSIDE. PATIENT INSTRUCTED NOT TO BEND LEG OR RAISE HEAD TO DRINK WATER; FLOYD NEED REINFORCEMENT.
[2019-02-23 19:19] LABS: International Normalized Ratio 1.13; Prothrombin Time Results 11.8 Sec (9.7-11.5)
--- NOTE | 2019-02-23 20:04 | NUR ---
PT RESTING IN BED. DAUGHTER AT BEDSIDE. PT HAD ANGIOPLASTY OF THE L LEG TODAY AND HAS R GROIN ACCESS SITE. PEDAL PULSES FOUND BY DOPPLER. PT STATES SHE HAS NUMBNESS, TINGLING, BURNING, AND ITCHING IN BOTH FEET THAT HAS BEEN A CHRONIC ISSUE. FEET ARE SENSITIVE TO TOUCH. L GROIN IS BRUISED FROM OLD ACCESS SITE. THERE IS BRUISING OF VARIOUS COLOR RANGING FROM GREEN TO DEEP PURPLE. BRUISING IS TO INNER THIGH, BACK OF LEG, AND UP TO FLANK ON THE L SIDE. THERE IS A HARD LUMP AT PUNCTURE SITE AND SKIN IS HARD DOWN IN TO INNER THIGH. PT AND DAUGHTER STATE THIS HAPPENED AFTER LAST ANGIO A WEEK AGO AND PT WAS RELEASED TO REHAB. PT STATES THE LUMP DOES NOT FEEL DIFFERENT IN SIZE FROM THE LAST FEW DAYS. PHOTOS IN CHART. HEPARIN GTT AND BOLUS STARTED PER DR. FITZPATRICK. WILL BE TRANSFUSING 2 UNITS OF PRBC'S WELL FOR HGB OF 7.8.
--- NOTE | 2019-02-23 22:06 | NUR ---
PT RESTING IN BED. PRBC'S TRANSFUSING. HAD TO PUT HEPARIN ON STANDBY FOR ABOUT 20 MINS DUE TO IV ACCESS. NOTIFIED PHARMACIST THAT SAID TO RESTART IT AND CHECK PTT AT 0300. POWERGLIDE PLACED TO R UPPER ARM. DR. FITZPATRICK CAME IN TO CHECK ON PT AND GAVE THE OK TO SIT UP AND MOVE AROUND A LITTLE. PT EATING A SNACK NOW BEFORE SHE TAKES HER NIGHT MEDS.
[2019-02-24 04:03] LABS: Hematocrit 28.3 % (33.0-51.0); Hemoglobin 9.1 g/dL (11.5-16.0)
--- NOTE | 2019-02-24 06:48 | NUR ---
SUMMARY PT RESTING IN BED. RECEIVED 2 UNITS OF PRBC'S LAST NIGHT. H&H STABLE THIS AM. PT HAS R GROIN ACCESS SITE THAT HAS BEEN STABLE ALL NIGHT. L GROIN HAS OLD ACCESS SITE THAT IS FIRM AND EXTENDS INTO INNER THIGH. THAT SITE HAS NOT CHANGED. DRESSING TO L HIP FROM HIP SURGERY IS C/D/I. HEPARIN GTT MANAGED BY PHARMACY. PT IS ABLE TO USE BEDPAN WITHOUT DIFFICULTY AND IS SHIFTING WEIGHT IN BED. NO SIGN OF DISTRESS THIS AM.
--- NOTE | 2019-02-24 08:30 | NUR ---
GROIN SITES, LEFT HIP INCISION, AND HEPARIN DRIP ASSESSED AND VERIFIED WITH OFF GOING RN. PT WAS RESTING IN BED WITH C/O OF SHARP PAIN TO LEFT FOOT. TONJA EXTREMITIES WERE PINK, WARM AND <3SEC CAP REFILL. PT HAS C/O CONSTIPATION, WILL DISCUSS OPTIONS WITH MD. FAMILY IS AT BEDSIDE VISITING.
[2019-02-24 16:10] LABS: Hematocrit 25.6 % (33.0-51.0); Hemoglobin 8.3 g/dL (11.5-16.0)
--- NOTE | 2019-02-24 17:01 | NUR ---
CALLED DR FITZPATRICK FOR UPDATE ON PT AND CHECK TO SEE IF SHE CAN DOWN GRADE. FROM HIS PERSPECTIVE PT IS OKAY TO TRANSFER OUT OF ICU WITH HEPARIN GTT AND CONTINUE TO MONITOR FOR BLEEDING/WORSENING HEMATOMA. INFORMED DR FITZPATRICK THAT FAMILY WISHES TO SPEAK WITH HIM AND HE STATED HE WOULD FOLLOW UP WITH FAMILY. CALLED DR GIVENS AND UPDATED HER ON WHAT DR FITZPATRICK HAD SAID ABOUT PT TRANSFER. OKAY TO TRANSFER PT TO SURGICAL FLOOR WITH ORDERS TO CONTINUE TO MONITOR BILAT GROIN SITE. DR GIVENS WAS UPDATE ON HEMAGLOBIN CHANGE OF 9.1 TO 8.3, NO ORDERS RECEIVED FOR THAT.
--- NOTE | 2019-02-24 18:24 | NUR ---
SHIFT SUMMARY PT HAD IMPROVED PAIN CONTROL TODAY, WITH ROUNTINE USE OF PRN PAIN MEDS. PT WAS ABLE TO TOLERATE WORKING WITH PT WITH THIS REGIMEN. PT CONTINUES ON HEPARIN GTT PER PHARMACY'S DOSING. PT'S BRUISING, HEMATOMAS REMAIN UNCHANGED. PT HAS ORDERS TO TRANSFER TO SURGICAL FLOOR ONCE A BED IS AVAILABLE. PER FAMILY'S REQUEST, WAS ABLE TO COORDINATE A MEETING WITH CASE MANAGEMENT FOR POSSIBLE HOME CARE. PT STATED THAT LEFT HIP DRESSING WAS CHANGED YESTERDAY. DRESSING IS C/D/I. REMINDED PT TO FOLLOW POST HIP PRECAUTIONS.
--- NOTE | 2019-02-24 19:20 | NUR ---
ASSUMED CARE OF PT, BEDSIDE REPORT RECEIVED. HEPARIN GTT VERIFIED INFUSING AT 17 UNITS/KG WITH OFFGOING RN. PT IS ALERT AND ORIENTED RECLINING IN BED. SPEAKING IN FULL SENTENCES, DENIES CURRENT N/V. DENIES NEEDS AT THIS TIME. WILL MONITOR.
[2019-02-25 04:27] LABS: Hematocrit 28.3 % (33.0-51.0); Hemoglobin 9.1 g/dL (11.5-16.0)
--- NOTE | 2019-02-25 04:40 | NUR ---
PT TO ROOM 354, BEDSIDE REPORT COMPLETED WITH RECEIVING RN.
--- NOTE | 2019-02-25 06:21 | NUR ---
SHIFT SUMMARY PATIENT TRANSFERRED FROM ICU. DENTAL NURSE HERMILO CAME WITH PATIENT AND WE BOTH LOOKED AT PATIENTS RIGHT AND LEFT GROIN ACCESS SITES AND EXTENSIVE BRUISING. HEPARIN DRIP CHECKED WITH ICU NURSE AND THEN WITH FLOOR NURSE WHEN DOSE ADJUSTED. IV CHECKED AND PATENT. PATIENT TREATED FOR PAIN. WILL CONTINUE TO MONITOR
--- NOTE | 2019-02-25 17:56 | NUR ---
Shift Summary A/Ox4. Conversational lady who is pleasant and cooperative with care. Calls appropriately. Medicated for 11/26 left groin and foot pain per EMAR, pt states "it is not doing anything" to manage her pain. Pt also concern about her constipation. Pt had suppository given 02/24/19 and also had a BM the same day. She has been declining her miralax because she feels it causes discomfort in her throat when she swallows it. Will give suppository tonight as patient allows and update oncoming RN. Denies N/V. Up frequently t/o day to use bedside commode. Physical therapy worked with patient and ambulated in hallway, tolerated well. No other changes this shift.
--- NOTE | 2019-02-26 05:03 | NUR ---
SHIFT SUMMARY: PT A&O X4 THROUGHOUT SHIFT. VS WNL. PT C/O PAIN IN LEFT GROIN AREA. PAIN MANAGED WITH PERCOCET 5MG PER EMAR. PT CONCERNED THAT HER PAIN IS NOT IMPROVING. SKIN TO L GROIN IS SWOLLEN AND TENDER. AQUACEL TO LEFT HIP IS CDI. PT OUT OF BED TO BATHROOM WITH 1 ASSIST AND FWW. TOLERATING ACTIVITY WELL. PT REPORTS BEING CONSTIPATED AND APPEARS ANXIOUS. PT GIVEN A SUPPOSITORY. PT HAD ONE SMALL SOFT PELLET SIZED BM.
[2019-02-26 08:50] LABS: Hematocrit 29.3 % (33.0-51.0); Hemoglobin 9.4 g/dL (11.5-16.0)
--- NOTE | 2019-02-26 18:03 | NUR ---
SUMM- PT ALERT AND ORIENTED. USES CALL LIGHT. GETS UP TO BSC TO VOID. HAVING DIFFICULTY AMBULATING RELATED TO PAIN IN L GROIN. HEMATOMA HARD AND PURPLE, EXTENDING INTO L FLANK AND BACK. PAINFUL TO SIT OR AMBULATE. STATED IN BED MOST OF THE DAY WITH LEG EXTENDED. PAIN CONTROLLED WITH PERCOCET. MEDICATED WITH ATIVAN X2 TODAY FOR MOD ANXIETY. PT HAS LG FAMILY AND GREAT SUPPORT, A LOT OF VISITORS TODAY.
--- NOTE | 2019-02-27 04:07 | NUR ---
SHIFT SUMMARY AOX4. LS CLEAR, DENIES SOB. NO C/O NAUSEA. PAIN RATED 6-810. 1 PERCOCET @ 2130 AND 0100, ASSUMING PT WILL NEED ANOTHER CLOSER TO SHIFT CHANGE. L GROIN IS BRUISED AND SWOLLEN, AREA MARKED WITH SKIN PEN. L HIP AQUACEL IS C/D/I. L FOOT IS SWOLLEN AND STIFF. L ARM IS BRUISED. 1 ASSIST TO BSC, PT UP SEVERAL TIMES THROUGHOUT THE NIGHT. BEDALARM. TELE SR 98. R FA AND R UA POWERGLIDE SL. BLOOD GLUCOSE BEFORE MEALS. 1 MG ATIVAN GIVEN @ 0100. VSS ON RA. PLAN TO DC TODAY WITH HOME HEALTH, SHERLY SOUSA FROM IS WORKING ON GETTING HOMEHEALTH ARRANGED.
[2019-02-27 15:09] LABS: CHOL/HDL RATIO 4.3; Cholesterol 145 mg/dL (50-200); HDL Cholesterol 34 mg/dL (>39); LDL/HDL RATIO 2.6; Low Density Lipoprotein Chol 87 mg/dL (0-110); Triglycerides 121 mg/dL (30-160); Very Low Density Lipoprot Chol 24 mg/dL (6-32)
--- NOTE | 2019-02-27 19:01 | NUR ---
PT ALERT AND ORIENTED THROUGHOUT THIS SHIFT. PT 1 PERSON ASSIST TO THE BEDSIDE COMODE. PT LEFT HIP STILL VERY PAINFUL AT SITE OF HEMATOMA. PT HAD VISITORS THROUGHOUT THE DAY. PT DISTRESSED THIS AFTERNOON AFTER FAMILY LEFT. I SAT WITH THE PATIENT AND ALLOWED HER TO EXPRESS HER FEELINGS. PT ANXOUS ABOUT HOME SITUATION AFTER DISCHARGE. PT COOPERATIVE WITH CARE. PT RESTING IN BED.
--- NOTE | 2019-02-27 23:30 | NUR ---
Pt has a small scuff, possibly from a nail on her Right elbow that was bleeding. RN advised I could give the pt a bandaid. I did another full linen change and delivered warm blankets. Pt is resting comfortably while visiting with family. Call light in reach.
--- NOTE | 2019-02-28 04:24 | NUR ---
SHIFT SUMMARY NO ASSESSMENT CHANGES. NO CHANGES TO WOUNDS. 1 ASSIST TO BSC. BED ALARM. R FA IV AND ANA POWERGLIDE SL. GABAPENTIN AND PERCOCET DOSES ADJUSTED. ATIVAN GIVEN @ 2044. PERCOCET GIVEN @ 2299 AND EXPECT TO GIVE ANOTHER THIS AM. PLAN IS TO DC TODAY WITH HOME HEALTH.
--- NOTE | 2019-02-28 11:03 | NUR ---
PROVIDER CONSULT SURGICAL CONSULT, DR RAMIREZ [facility] RN, FOR EVAL OF LEFT GROIN HEMATOMA. MESSAGE LEFT WITH LIO AT THE OFFICE AT 11:OOAM.
[2019-02-28 11:16] LABS: BASOPHILS ABSOLUTE AUTO 0.05 K/mm3 (0.00-0.23); BASOPHILS PERCENT AUTO 1 % (0-2); EOSINOPHILS PERCENT AUTO 1 % (0-6); Hematocrit 35.9 % (33.0-51.0); Hemoglobin 11.1 g/dL (11.5-16.0); IMMATURE GRAN ABSOLUTE AUTO 0.03 K/mm3 (0.00-0.10); IMMATURE GRAN PERCENT AUTO 0 % (0-1); LYMPHOCYTES ABSOLUTE AUTO 0.89 K/mm3 (0.84-5.20); LYMPHOCYTES PERCENT AUTO 10 % (21-46); MONOCYTES ABSOLUTE AUTO 0.66 K/mm3 (0.16-1.47); MONOCYTES PERCENT AUTO 7 % (4-13); Mean Corpuscular HGB 29.7 pg (26.0-34.0); Mean Corpuscular HGB Conc 30.9 g/dL (31.5-36.5); Mean Corpuscular Volume 96 fL (80-100); Mean Platelet Volume 9.1 fL (9.1-12.4); NEUTROPHILS ABSOLUTE AUTO 7.15 K/mm3 (1.96-9.15); NEUTROPHILS PERCENT AUTO 81 % (41-73); Platelet Count 497 K/mm3 (150-400); RDW Coefficient Variation 15.5 % (11.7-14.2); RDW Standard Deviation 54.3 fL (35.1-46.3); Red Blood Cell Count 3.74 M/mm3 (3.80-5.20); White Blood Cell Count 8.88 K/mm3 (4.00-11.30)
[2019-02-28 11:28] LABS: Anion Gap 6 mmol/L (6-16); Blood Urea Nitrogen 12 mg/dL (8-24); Bun/Creatinine Ratio 20.7 (12.0-20.0); CO2, Blood 27 mmol/L (21-32); Calcium, Blood 8.7 mg/dL (8.5-10.1); Chloride, Blood 107 mmol/L (98-108); Creatinine, Blood 0.58 mg/dL (0.40-1.00); Glomerular Filtration Rate >60 (60-); Glucose, Blood 136 mg/dL (70-99); Potassium, Blood 3.8 mmol/L (3.5-5.5); Sodium, Blood 140 mmol/L (136-145)
--- NOTE | 2019-02-28 14:23 | NUR ---
CONSULT FOLLOW UP CONSULT FOR DR FITZPATRICK, SPOKE WITH ALHAJI, DR WOLFE [employer], SHE WILL GIVE INFORMATION TO DR FITZPATRICK WHEN HE RETURNS TO CLINIC AT [address] YADAV NOTIFIED
--- NOTE | 2019-02-28 18:25 | NUR ---
PROVIDER CONSULT PER DR YADAV RECALLED DR FITZPATRICK CONSULT TO ANSWERING SERVICE.
--- NOTE | 2019-02-28 18:37 | NUR ---
NO ACUTE CHANGES NOTED THIS SHIFT, SURGICAL CONSULT, DR RAMIREZ, AND A CONSULT TO DR FITZPATRICK CALLED. DR YADAV ATTEMPTED TO CONTACT DR YADAV BUT WAS NOT SUCCESSFUL. WILL CONTINUE TO MONITOR AND REPORT TO ONCOMING BENSON
--- NOTE | 2019-03-01 04:13 | NUR ---
SHIFT SUMMARY NO ASSESSMENT CHANGES. NO IMPROVEMENT TO GROIN SITE, PLAN IS FOR DR FITZPATRICK TO SEE PT AND RE-LIBERTY. PAIN 10/26, PERCOCET GIVEN @ 2014. 1MG ATIVAN GIVEN @ 2199. BED ALARM. AOX4. R FA AND ANA POWERGLHANSA SL. BLOOD GLUCOSE BEFORE MEALS. PT REQUESTING SUPPOSITORY LATER TODAY. VSS ON RA. PT HOPES TO DC HOME W/HH TODAY. PENDING DR KOENIG AND INSURANCE.
--- NOTE | 2019-03-01 17:52 | NUR ---
PATIENT IS ALERT AND ORIENTED AND COOPERATIVE WITH CARE. SHE COMPLAINS OF PAIN IN HER LEFT GROIN WHERE SHE HAS A HEMATOMA. DR. FITZPATRICK STOPPED BY THE SEE THE PATIENT THIS EVENING. HE ORDERED AN ULTRASOUND TO RULE OUT A PSEUDOANEURYSM. PAIN TREATED PER EMAR. SHE WORKED WITH PT AND OT TODAY. SHE WENT ON A WALK AROUND THE UNIT. SHE AMBULATES TO THE BATHROOM. SHE HAD A BM TODAY.
--- NOTE | 2019-03-02 04:23 | NUR ---
SIZING END BANDER SUMMARY. patient quite anxious early in evening. very discouraged about "another reason to have to go back to surgery." explained that the Dr's note from her US was not visible to me in the chart, and that often times, another surgery is not necessary. encouraged patient to verbalize her concerns and offered support. Left groin quite painful. medicated twice over shift for pain with percocet.
[2019-03-02] MEDS ORDERED: ASPI81CH PO (10:02)
[2019-03-02] MEDS ORDERED: ATOR10 PO (10:02)
[2019-03-02] MEDS ORDERED: Culturelle1 CAP PO (10:04)
[2019-03-02] MEDS ORDERED: Percocet 7.5-31 EACH PO (10:05)
[2019-03-02] MEDS ORDERED: XARELTO15 MG PO (10:06)
[2019-03-02] MEDS ORDERED: SENN187 PO (10:07)
--- NOTE | 2019-03-02 11:58 | NUR ---
Discharge Summary A/Ox3. Pleasant and cooperative with care. Pt has physical therapy and ambulated in hallway + to the bathroom today. Pt is now discharged to home with [facility]. Discharge instructions reviewed with patient and daughter (Rossana) at the bedside, educational materials provided. Meds faxed to preferred pharmacy. Prior to discharge, pt requested pain medication for knees, medicated for pain med x 1 per EMAR. Power glide removed, WNL. Aquacel bandage on left hip changed, no signs of drainage on the bandage or incision, area looks clean and dry, vicki are in place, no signs of infection. Patient escorted via w/c by TEST DESK SUPERVISOR and transported via personal vehicle. This RN had Radha ([facility]) come in and answered Rossana's questions prior to discharge about expectations at home with . Personal belongings sent home.
[2019-05-17] MEDS ORDERED: ASPI81CH PO (12:01)
== END 2019-03-02 11:50 | disposition home health service (06) | DRG 271 ==
LOC: ER 09:06 → MEDS 09:07 → ICUW 02-23 15:41 → MEDS 02-24 12:23 → ICUW 02-24 12:23 → MEDS 02-25 04:45 → ENPENDDIS 03-02 09:52 → MEDS 03-02 11:50
PROVIDERS: Emergency Medicine; Internal Medicine; Nurse Practitioner Acute Care; Radiology Diagnostic Radiology; ADMIT Internal Medicine
PROC: 047J3ZZ Dilation of Left External Iliac Artery, Percutaneous Approach (ICD-10-PCS; principal; 2019-02-23)
PROC: 04CL3ZZ Extirpation of Matter from Left Femoral Artery, Percutaneous Approach (ICD-10-PCS; 2019-02-23)
PROC: 047L3ZZ Dilation of Left Femoral Artery, Percutaneous Approach (ICD-10-PCS; 2019-02-23)
PROC: 04CY3ZZ Extirpation of Matter from Lower Artery, Percutaneous Approach (ICD-10-PCS; 2019-02-23)
PROC: 3E05317 Introduction of Other Thrombolytic into Peripheral Artery, Percutaneous Approach (ICD-10-PCS; 2019-02-23)
PROC: B41G1ZZ Fluoroscopy of Left Lower Extremity Arteries using Low Osmolar Contrast (ICD-10-PCS; 2019-02-23)
PROC: B41C1ZZ Fluoroscopy of Pelvic Arteries using Low Osmolar Contrast (ICD-10-PCS; 2019-02-23)
DX: I74.3 Embolism and thrombosis of arteries of the lower extremities (principal); L76.32 Postprocedural hematoma of skin and subcutaneous tissue following other procedure; I10 Essential (primary) hypertension; E11.9 Type 2 diabetes mellitus without complications; F41.1 Generalized anxiety disorder; Z87.891 Personal history of nicotine dependence; S72.002D Fracture of unspecified part of neck of left femur, subsequent encounter for closed fracture with routine healing; K59.00 Constipation, unspecified; Y92.9 Unspecified place or not applicable; I73.9 Peripheral vascular disease, unspecified
CPT/HCPCS: 36415; 36430; 37184; 37220; 37224; 71045; 75716; 75774; 80048; 80053; 80061; 82947; 83735; 85014; 85018; 85025; 85610; 85651; 85730; 86850; 86900; 86901; 86923; 93926; 94762; 96374; 96375; 96376; 97110; 97116; 97162; 97166; 97530; 97535; 99152; 99153; 99285-25; A9270-GY; C1725; C1751; C1760; C1769; C1773; C1874; C1876; C1887; C1894; G0378; J1200; J1644; J1885; J2250; J2405; J2765; J2997; J3010; J7030; P9016; Q9967

== ENCOUNTER → 2019-05-26 | Outpatient (CLI) | payer MEDICARE ==
[~2019-05-26] MED LIST changes: +ASPI81CH PO; +ATOR10 PO; +Acetaminophen650 M1 PO; +BISA10S PR; +CEPH250A PO; +Culturelle1 CAP PO; +DOCU100 PO; +DOXE10 PO; +ERGO50000 PO; +Fleet Enema132 ML PR; +LORA.5 PO; +Milk Of Ma400 MG/5 M PO; +Nicoderm Cq1 EAC1 TD; +Norco 7.5-3251 EACH PO; +Percocet 7.5-31 EACH PO; +SENN187 PO; +Ventolin/Prove6.7 GM; +XARELTO15 MG PO
== END | disposition home or self-care (01) ==
LOC: LAB SHORT 11:53 → LAB 11:53
DX: N39.0 Urinary tract infection, site not specified (principal)
CPT/HCPCS: 87086

== ENCOUNTER 2019-06-26 21:32 | Observation (INO) | payer MEDICARE ==
[~2019-06-26] VITALS: Ht 167.6 cm; Wt 54.1 kg
[~2019-06-26 21:32] MED LIST changes: +Aspir 8181 MG PO
[2019-06-26 22:00] LABS: BASOPHILS ABSOLUTE AUTO 0.06 K/mm3 (0.00-0.23); BASOPHILS PERCENT AUTO 1 % (0-2); EOSINOPHILS ABSOLUTE AUTO 0.06 K/mm3 (0.00-0.68); EOSINOPHILS PERCENT AUTO 1 % (0-6); Hematocrit 35.5 % (33.0-51.0); Hemoglobin 11.4 g/dL (11.5-16.0); IMMATURE GRAN ABSOLUTE AUTO 0.02 K/mm3 (0.00-0.10); IMMATURE GRAN PERCENT AUTO 0 % (0-1); LYMPHOCYTES ABSOLUTE AUTO 2.23 K/mm3 (0.84-5.20); LYMPHOCYTES PERCENT AUTO 26 % (21-46); MONOCYTES ABSOLUTE AUTO 0.59 K/mm3 (0.16-1.47); MONOCYTES PERCENT AUTO 7 % (4-13); Mean Corpuscular HGB Conc 32.1 g/dL (31.5-36.5); Mean Corpuscular Volume 90 fL (80-100); Mean Platelet Volume 10.1 fL (9.1-12.4); NEUTROPHILS ABSOLUTE AUTO 5.59 K/mm3 (1.96-9.15); NEUTROPHILS PERCENT AUTO 65 % (41-73); Platelet Count 234 K/mm3 (150-400); RDW Coefficient Variation 13.4 % (11.7-14.2); RDW Standard Deviation 44.7 fL (35.1-46.3); Red Blood Cell Count 3.93 M/mm3 (3.80-5.20); White Blood Cell Count 8.55 K/mm3 (4.00-11.30)
[2019-06-26 22:12] LABS: Alanine Aminotransfer (ALT/SGP 24 U/L (12-78); Albumin, Blood 3.2 g/dL (3.4-5.0); Albumin/Globulin Ratio 0.9 (0.8-1.8); Alk Phos 88 U/L (50-136); Anion Gap 5 mmol/L (6-16); Aspartate Aminotrans (AST/SGOT 21 U/L (12-37); Bilirubin, Total 0.2 mg/dL (0.1-1.0); Blood Urea Nitrogen 14 mg/dL (8-24); CO2, Blood 28 mmol/L (21-32); Calcium, Blood 8.6 mg/dL (8.5-10.1); Chloride, Blood 108 mmol/L (98-108); Globulin, Blood 3.6 g/dL (2.2-4.0); Glomerular Filtration Rate >60 (60-); Glucose, Blood 182 mg/dL (70-99); Potassium, Blood 3.8 mmol/L (3.5-5.5); Sodium, Blood 141 mmol/L (136-145); Total Protein, Blood 6.8 g/dL (6.4-8.2)
[2019-06-27 04:21] LABS: Source, Urine Clean Catch
[2019-06-27 04:24] LABS: Bilirubin, Urine Neg (Neg); Blood, Urine Neg (Neg); Glucose Qualitative, Urine Neg (Neg); Ketones, Urine Neg (Neg); Leukocyte Esterase, Urine Neg (Neg); Nitrite, Urine Neg (Neg); Protein, Urine 1+ (Neg); Urobilinogen, Urine NORM (Normal)
[2019-06-27 04:35] LABS: Appearance, Urine Clear (Clear); Color, Urine Yellow (P-Yellow)
[2019-06-27 05:15] LABS: BASOPHILS ABSOLUTE AUTO 0.04 K/mm3 (0.00-0.23); BASOPHILS PERCENT AUTO 1 % (0-2); EOSINOPHILS ABSOLUTE AUTO 0.03 K/mm3 (0.00-0.68); EOSINOPHILS PERCENT AUTO 0 % (0-6); Hematocrit 32.2 % (33.0-51.0); Hemoglobin 10.4 g/dL (11.5-16.0); IMMATURE GRAN ABSOLUTE AUTO 0.02 K/mm3 (0.00-0.10); IMMATURE GRAN PERCENT AUTO 0 % (0-1); LYMPHOCYTES ABSOLUTE AUTO 1.86 K/mm3 (0.84-5.20); LYMPHOCYTES PERCENT AUTO 22 % (21-46); MONOCYTES PERCENT AUTO 7 % (4-13); Mean Corpuscular HGB 28.7 pg (26.0-34.0); Mean Corpuscular HGB Conc 32.3 g/dL (31.5-36.5); Mean Corpuscular Volume 89 fL (80-100); Mean Platelet Volume 10.3 fL (9.1-12.4); NEUTROPHILS ABSOLUTE AUTO 6.04 K/mm3 (1.96-9.15); NEUTROPHILS PERCENT AUTO 70 % (41-73); Platelet Count 217 K/mm3 (150-400); RDW Coefficient Variation 13.5 % (11.7-14.2); RDW Standard Deviation 44.4 fL (35.1-46.3); Red Blood Cell Count 3.63 M/mm3 (3.80-5.20); White Blood Cell Count 8.59 K/mm3 (4.00-11.30)
[2019-06-27 05:31] LABS: Alanine Aminotransfer (ALT/SGP 18 U/L (12-78); Albumin/Globulin Ratio 0.9 (0.8-1.8); Alk Phos 83 U/L (50-136); Anion Gap 6 mmol/L (6-16); Aspartate Aminotrans (AST/SGOT 21 U/L (12-37); Bilirubin, Total 0.3 mg/dL (0.1-1.0); Blood Urea Nitrogen 16 mg/dL (8-24); Bun/Creatinine Ratio 31.1 (12.0-20.0); CO2, Blood 26 mmol/L (21-32); CPK Creatine Kinase 90 U/L (26-193); Calcium, Blood 8.3 mg/dL (8.5-10.1); Chloride, Blood 109 mmol/L (98-108); Creatinine, Blood 0.51 mg/dL (0.40-1.00); Globulin, Blood 3.3 g/dL (2.2-4.0); Glomerular Filtration Rate >60 (60-); Glucose, Blood 131 mg/dL (70-99); Sodium, Blood 141 mmol/L (136-145); Total Protein, Blood 6.3 g/dL (6.4-8.2); Troponin I <0.015 ng/mL (0.000-0.040)
[2019-06-27 05:32] LABS: Creatine Kinase MB 1.7 ng/mL (0.0-3.6); Creatine Kinase MB Index 1.9 (0.0-4.0)
[2019-06-27] MEDS ORDERED: XARELTO15 MG PO (14:31)
--- NOTE | 2019-06-27 14:35 | NUR ---
ASSUMED CARE OF PATIENT PATIENT ADMITTED FROM ER TO ROOM 308. RECEIVED REPORT FROM BENSON ALONZO. PATIENT ARRIVED VIA STRETCHER AND INDEPENDENTLY TRANSFERRED OVER TO BED. PT IS SBA AND USES CALL LIGHT APPROPRIATELY. A/OX4. PATIENT SETTLED TO ROOM WITH CALL LIGHT IN REACH. BED IN LOWEST POSITION, WILL CONTINUE TO MONITOR.
--- NOTE | 2019-06-27 17:29 | NUR ---
Shift Summary A/Ox4, pleasant and cooperative with care. Pt is SBA to the bedside commode, calls appropriately for needs, very conversational, and a good historian. Pt c/o mild abdominal tenderness upon palpation, had one small reddish maroonish colored stool which appeared to look like a few clots. Per Dr. Shin, H&H to be monitored and scope held for now. Patient will be changed to Cardiac diet, Dr. Shin will put in the orders according to him. No other acute concerns at this time.
--- NOTE | 2019-06-27 23:18 | NUR ---
CODE STATUS NO CODE STATUS ORDERED ON PT. SPOKE WITH PT AND SHE WISHES TO BE A FULL CODE. TOM SANDOVAL NOTIFIED, AND CODE STATUS ORDERED ACCORDINGLY.
--- NOTE | 2019-06-28 04:15 | NUR ---
SHIFT SUMMARY NO ACUTE CHANGES TO REPORT THIS SHIFT. PT IS STILL HAVING BOUTS OF DIARRHEA BUT THEY HAVE SLOWED DOWN. SHE CONTINUES TO BE REPORT ABD PAIN, MOSTLY TENDERNESS WITH PALPATION. NO NAUSEA OR VOMITTING THIS SHIFT. SHE HAS BEEN ABLE TO TOLERATE LIQUIDS. PT A/OX4, SHE HAS BEEN AMBULATING TO [facility] WITH 1 PA. PT RESTS MOST OF THE NIGHT. BED IN LOWEST POSITION, CALL LIGHT WITHIN REACH. WILL CONTINUE TO MONITOR AND REPORT TO ONCOMING RN.
[2019-06-28 04:56] LABS: BASOPHILS ABSOLUTE AUTO 0.02 K/mm3 (0.00-0.23); BASOPHILS PERCENT AUTO 0 % (0-2); EOSINOPHILS ABSOLUTE AUTO 0.14 K/mm3 (0.00-0.68); EOSINOPHILS PERCENT AUTO 2 % (0-6); Hematocrit 33.4 % (33.0-51.0); Hemoglobin 10.3 g/dL (11.5-16.0); IMMATURE GRAN ABSOLUTE AUTO 0.01 K/mm3 (0.00-0.10); IMMATURE GRAN PERCENT AUTO 0 % (0-1); LYMPHOCYTES ABSOLUTE AUTO 1.75 K/mm3 (0.84-5.20); LYMPHOCYTES PERCENT AUTO 27 % (21-46); MONOCYTES ABSOLUTE AUTO 0.45 K/mm3 (0.16-1.47); MONOCYTES PERCENT AUTO 7 % (4-13); Mean Corpuscular HGB 27.8 pg (26.0-34.0); Mean Corpuscular HGB Conc 30.8 g/dL (31.5-36.5); Mean Corpuscular Volume 90 fL (80-100); Mean Platelet Volume 10.2 fL (9.1-12.4); NEUTROPHILS PERCENT AUTO 63 % (41-73); Platelet Count 217 K/mm3 (150-400); RDW Coefficient Variation 13.6 % (11.7-14.2); RDW Standard Deviation 45.3 fL (35.1-46.3); White Blood Cell Count 6.47 K/mm3 (4.00-11.30)
[2019-06-28 05:17] LABS: Anion Gap 4 mmol/L (6-16); Blood Urea Nitrogen 7 mg/dL (8-24); Bun/Creatinine Ratio 14.8 (12.0-20.0); CO2, Blood 26 mmol/L (21-32); Calcium, Blood 8.1 mg/dL (8.5-10.1); Chloride, Blood 113 mmol/L (98-108); Creatinine, Blood 0.47 mg/dL (0.40-1.00); Glomerular Filtration Rate >60 (60-); Glucose, Blood 119 mg/dL (70-99); Potassium, Blood 3.5 mmol/L (3.5-5.5); Sodium, Blood 143 mmol/L (136-145)
[2019-06-28 08:27] LABS: Hematocrit 32.9 % (33.0-51.0); Hemoglobin 10.4 g/dL (11.5-16.0)
[2019-06-28 16:00] LABS: Hematocrit 30.9 % (33.0-51.0); Hemoglobin 9.8 g/dL (11.5-16.0)
--- NOTE | 2019-06-28 19:39 | NUR ---
SHIFT SUMMARY PT AWAKE DURING SHIFT REPORT, RESTING QUIETLY. PT APPEARED SLIGHTLY WEAK, GETTING UP TO BSC WITH 1P ASSIST. PER REPORT, PT ADMITTED FOR N/V/D WITH HX OF POLYPS REMOVED AT [facility] RECENTLY. XARELTO D/C'D PER REPORT AND ASA HELD TODAY FOR ONE MORE DAY, PER DR MONTERROSO. P/T ORDER TODAY AND PT ABLE TO AMBULATE WELL IN HER RM. LATER IN THE DAY, PT HAS BEEN INDEPENDENT IN HER RM. PT HAD 1 BM TODAY WITH GERALD BLACK BLOOD. DR MONTERROSO IN TO SEE PT THIS AM. PT C/O PREVIOUS BRIGHT RED BLOOD WHEN WIPING AFTER VOIDING. PT WITH POSSIBLE HEMORRHOIDS IF ONLY SM AMT OF BRIGHT RED BLOOD. NO FURTHER C/O BRIGHT RED BLOOD DURING THE DAY. PT HAS CONTINUED TO REPORT THAT SHE IS FEELING BETTER. TOLERATING CL WELL. REPORT GIVEN TO ONCOMING SHIFT.
--- NOTE | 2019-06-28 22:50 | NUR ---
PATIENT SLEEPING. SON GONE FOR EVENING. CALL LIGHT IN REACH.
[2019-06-28 23:45] LABS: Hematocrit 31.7 % (33.0-51.0); Hemoglobin 10.1 g/dL (11.5-16.0)
--- NOTE | 2019-06-29 03:12 | NUR ---
SHIFT SUMMARY PATIENT HAD NO ACUTE CHANGES OBSERVED. AXOX 4 AND INDEPENDENT IN ROOM WITH FWW TO BR. VSS/AFEBRILE. DENIES PAIN, SOB, AND N/V. FAMILY PRESENT AT SHIFT CHANGE. HGB 10.1 AND HCT 31.7 UP FROM PREVIOUS LAB DRAW. PIV REMAINS INTACT. COOPERATIVE WITH CARE. CALL LIGHT IN REACH. BED IN LOWEST POSITION. WILL CONTINUE TO MONITOR UNTIL DAY SHIFT NURSE ASSUMES CARE.
[2019-06-29 07:56] LABS: Hematocrit 34.2 % (33.0-51.0)
[2019-06-29 08:28] LABS: Anion Gap 6 mmol/L (6-16); Blood Urea Nitrogen 7 mg/dL (8-24); CO2, Blood 26 mmol/L (21-32); Calcium, Blood 8.5 mg/dL (8.5-10.1); Chloride, Blood 112 mmol/L (98-108); Creatinine, Blood 0.54 mg/dL (0.40-1.00); Glomerular Filtration Rate >60 (60-); Glucose, Blood 124 mg/dL (70-99); Potassium, Blood 3.5 mmol/L (3.5-5.5); Sodium, Blood 144 mmol/L (136-145)
--- NOTE | 2019-06-29 08:30 | NUR ---
CHARTING ASSEMBLER DC FIELD YOKE 2 STUDENT
[2019-06-29] MEDS ORDERED: ONDA4ODT MM (10:27)
[2019-06-29] MEDS ORDERED: ASPIR 8181 M1 PO (10:27)
[2019-06-29] MEDS ORDERED: PANT20 PO (10:28)
--- NOTE | 2019-06-29 11:54 | NUR ---
DISCHARGE DISCHARGE INSTRUCTIONS, MEDICATIONS LIST AND FOLLOW UP APPOINTMENTS REVIEWED WITH PT. QUESTIONS/CONCERNS ANSWERED. PT VERBALLY INDICATED UNDERSTANDING OF ALL INSTRUCTIONS RECEIVED. NEW MED SCRIPS FAXED TO [facility] PER PT PREFERENCE. PT WAITING FOR HER RIDE AT THIS TIME
--- NOTE | 2019-06-29 12:10 | NUR ---
PT ESCORTED OUT VIA W/C BY SERVANDO
== END 2019-06-29 12:10 | disposition home or self-care (01) ==
LOC: ER 21:32 → ERHOLD 21:33 → MEDS 21:33 → ENPENDDIS 06-29 10:00 → MEDS 06-29 12:10
PROVIDERS: Emergency Medicine; Family Medicine; ADMIT Internal Medicine
DX: K91.840 Postprocedural hemorrhage of a digestive system organ or structure following a digestive system procedure (principal); E11.51 Type 2 diabetes mellitus with diabetic peripheral angiopathy without gangrene; F41.9 Anxiety disorder, unspecified; I27.20 Pulmonary hypertension, unspecified; E86.0 Dehydration; I71.4 Abdominal aortic aneurysm, without rupture; J43.9 Emphysema, unspecified; Z88.5 Allergy status to narcotic agent; Z88.8 Allergy status to other drugs, medicaments and biological substances; Z91.040 Latex allergy status; Z79.01 Long term (current) use of anticoagulants; Z79.899 Other long term (current) drug therapy; Z79.82 Long term (current) use of aspirin; K57.30 Diverticulosis of large intestine without perforation or abscess without bleeding; I70.8 Atherosclerosis of other arteries
CPT/HCPCS: 36415; 71275; 74175; 74176; 80048; 80053; 82550; 82553; 83690; 84484; 85014; 85018; 85025; 93005; 93010; 96361; 96374-59; 96376; 97161; 97165; 97530; 97535; 99285-25; C9113; G0378; J7030; Q9967

== ENCOUNTER 2020-06-26 12:37 | Emergency (ER) | payer MEDICARE, SELFPAY ==
[~2020-06-26] VITALS: Ht 167.6 cm; Wt 54.4 kg
[~2020-06-26 12:37] MED LIST changes: +ASPIR 8181 M1 PO; +ONDA4ODT MM; +PANT20 PO
== END 2020-06-26 15:50 | disposition home or self-care (01) ==
LOC: ER 12:37
DX: S01.01XA Laceration without foreign body of scalp, initial encounter (principal); I10 Essential (primary) hypertension; E11.51 Type 2 diabetes mellitus with diabetic peripheral angiopathy without gangrene; G40.909 Epilepsy, unspecified, not intractable, without status epilepticus; Z88.8 Allergy status to other drugs, medicaments and biological substances; Z88.5 Allergy status to narcotic agent; Z91.040 Latex allergy status; Z79.01 Long term (current) use of anticoagulants; Z79.899 Other long term (current) drug therapy; W01.0XXA Fall on same level from slipping, tripping and stumbling without subsequent striking against object, initial encounter
CPT/HCPCS: 70450; 71046; 72125; 99285-25

== ENCOUNTER 2020-10-16 10:13 | Emergency (ER) | payer MEDICARE ==
[~2020-10-16] VITALS: Ht 167.6 cm; Wt 54.0 kg
[2020-10-16 11:01] LABS: BASOPHILS ABSOLUTE AUTO 0.02 K/mm3 (0.00-0.23); BASOPHILS PERCENT AUTO 0 % (0-2); EOSINOPHILS PERCENT AUTO 0 % (0-6); Hematocrit 36.6 % (33.0-51.0); Hemoglobin 12.2 g/dL (11.5-16.0); IMMATURE GRAN ABSOLUTE AUTO 0.08 K/mm3 (0.00-0.10); IMMATURE GRAN PERCENT AUTO 1 % (0-1); LYMPHOCYTES ABSOLUTE AUTO 0.61 K/mm3 (0.84-5.20); LYMPHOCYTES PERCENT AUTO 5 % (21-46); MONOCYTES ABSOLUTE AUTO 0.87 K/mm3 (0.16-1.47); MONOCYTES PERCENT AUTO 7 % (4-13); Mean Corpuscular HGB 30.2 pg (26.0-34.0); Mean Corpuscular HGB Conc 33.3 g/dL (31.5-36.5); Mean Corpuscular Volume 91 fL (80-100); Mean Platelet Volume 9.8 fL (9.1-12.4); NEUTROPHILS ABSOLUTE AUTO 10.48 K/mm3 (1.96-9.15); NEUTROPHILS PERCENT AUTO 87 % (41-73); Platelet Count 207 K/mm3 (150-400); RDW Coefficient Variation 13.1 % (11.7-14.2); RDW Standard Deviation 43.6 fL (35.1-46.3); Red Blood Cell Count 4.04 M/mm3 (3.80-5.20); White Blood Cell Count 12.06 K/mm3 (4.00-11.30)
[2020-10-16 11:21] LABS: Alanine Aminotransfer (ALT/SGP 49 U/L (12-78); Albumin, Blood 2.9 g/dL (3.4-5.0); Albumin/Globulin Ratio 0.7 (0.8-1.8); Alk Phos 82 U/L (50-136); Anion Gap 7 mmol/L (6-16); Aspartate Aminotrans (AST/SGOT 122 U/L (12-37); Bilirubin, Total 0.5 mg/dL (0.1-1.0); Blood Urea Nitrogen 12 mg/dL (8-24); Bun/Creatinine Ratio 22.1 (12.0-20.0); CO2, Blood 25 mmol/L (21-32); Calcium, Blood 8.3 mg/dL (8.5-10.1); Chloride, Blood 106 mmol/L (98-108); Creatinine, Blood 0.54 mg/dL (0.40-1.00); Globulin, Blood 3.9 g/dL (2.2-4.0); Glomerular Filtration Rate >60 (60-); Glucose, Blood 120 mg/dL (70-99); Potassium, Blood 3.2 mmol/L (3.5-5.5); Sodium, Blood 138 mmol/L (136-145); Total Protein, Blood 6.8 g/dL (6.4-8.2)
[2020-10-16 11:23] LABS: Source, Urine Voided
[2020-10-16 11:44] LABS: Appearance, Urine Hazy (Clear); Bilirubin, Urine Neg (Neg); Blood, Urine 5+ (Neg); Color, Urine Yellow (P-Yellow); Glucose Qualitative, Urine Neg (Neg); Ketones, Urine 1+ (Neg); Leukocyte Esterase, Urine 3+ (Neg); Nitrite, Urine Neg (Neg); Protein, Urine 3+ (Neg); Urobilinogen, Urine NORM (Normal)
[2020-10-16 12:00] LABS: White Blood Cells, Urine 50-100 /hpf (0-5)
[2020-10-16 12:06] LABS: Bacteria Many /hpf; Renal Epithelial Rare /hpf (0-Rare); Squamous Epithelial Cells Rare /hpf (Few)
[2020-10-16] MEDS ORDERED: CEPH500 PO (14:34)
== END 2020-10-16 15:15 | disposition home or self-care (01) ==
LOC: ER 10:13
PROVIDERS: Emergency Medicine
DX: N12 Tubulo-interstitial nephritis, not specified as acute or chronic (principal); Z79.899 Other long term (current) drug therapy
CPT/HCPCS: 71045; 80053; 81001; 83605; 85025; 87077; 87086; 87186; 96365; 99285-25; J0696; J7030

== ENCOUNTER → 2020-11-04 | Outpatient (CLI) | payer MEDICARE ==
[~2020-11-04] MED LIST changes: +CEPH500 PO
[2020-11-04 14:02] LABS: Source, Urine Clean Catch
[2020-11-04 19:05] LABS: Bacteria Few /hpf; Squamous Epithelial Cells Few /hpf (Few); White Blood Cells, Urine 0-2 /hpf (0-5)
== END | disposition home or self-care (01) ==
LOC: LAB SHORT 13:59
PROVIDERS: Family Medicine
DX: R30.9 Painful micturition, unspecified (principal)
CPT/HCPCS: 81015; 87086

== ENCOUNTER → 2021-09-23 | Outpatient (CLI) | payer OTHER ==
[2021-09-24 09:44] LABS: Appearance, Urine Clear (Clear); Bilirubin, Urine Neg (Neg); Blood, Urine Neg (Neg); Color, Urine Yellow (P-Yellow); Glucose Qualitative, Urine Neg (Neg); Ketones, Urine Neg (Neg); Leukocyte Esterase, Urine Neg (Neg); Nitrite, Urine Neg (Neg); Protein, Urine Neg (Neg); Urobilinogen, Urine NORM (Normal)
== END | disposition home or self-care (01) ==
LOC: LAB SHORT 11:00
PROVIDERS: Internal Medicine
DX: N39.0 Urinary tract infection, site not specified (principal)
CPT/HCPCS: 81003

== ENCOUNTER → 2022-02-26 | Outpatient (CLI) | payer OTHER ==
[2022-02-26 19:23] LABS: Thyroid Stimulating Hormone 1.02 uIU/mL (0.360-4.800)
== END | disposition home or self-care (01) ==
LOC: LAB SHORT 14:59 → LAB 14:59
PROVIDERS: Internal Medicine
DX: E11.42 Type 2 diabetes mellitus with diabetic polyneuropathy (principal); E53.8 Deficiency of other specified B group vitamins
CPT/HCPCS: 82607; 82746; 83036; 84443; 85651; 86038

== ENCOUNTER 2022-05-29 16:40 | Observation (INO) | payer OTHER ==
[~2022-05-29] VITALS: Ht 157.5 cm; Wt 52.4 kg
[2022-05-29 17:10] LABS: Calcium, Ionized (POC) 1.13 mmol/L (1.10-1.46); Chloride (POC) 99 mmol/L (98-108); Creatinine (POC) 0.7 mg/dL (0.6-1.0); Glucose (ISTAT POC) 377 mg/dL (70-99); Hemoglobin (POC) 16.3 g/dL (12.0-16.0); Potassium (POC) 3.6 mmol/L (3.5-5.5); Sodium (POC) 138 mmol/L (135-148); Total CO2 (POC) 27 mmol/L (21-32)
[2022-05-29 17:30] LABS: BASOPHILS ABSOLUTE AUTO 0.04 K/mm3 (0.00-0.23); BASOPHILS PERCENT AUTO 0 % (0-2); EOSINOPHILS ABSOLUTE AUTO 0.01 K/mm3 (0.00-0.68); EOSINOPHILS PERCENT AUTO 0 % (0-6); Hematocrit 46.3 % (33.0-51.0); Hemoglobin 15.8 g/dL (11.5-16.0); IMMATURE GRAN ABSOLUTE AUTO 0.06 K/mm3 (0.00-0.10); IMMATURE GRAN PERCENT AUTO 0 % (0-1); LYMPHOCYTES ABSOLUTE AUTO 0.92 K/mm3 (0.84-5.20); LYMPHOCYTES PERCENT AUTO 6 % (21-46); MONOCYTES ABSOLUTE AUTO 1.23 K/mm3 (0.16-1.47); MONOCYTES PERCENT AUTO 8 % (4-13); Mean Corpuscular HGB 30.6 pg (26.0-34.0); Mean Corpuscular HGB Conc 34.1 g/dL (31.5-36.5); Mean Corpuscular Volume 90 fL (80-100); Mean Platelet Volume 10.7 fL (9.1-12.4); NEUTROPHILS ABSOLUTE AUTO 14.06 K/mm3 (1.96-9.15); NEUTROPHILS PERCENT AUTO 86 % (41-73); Platelet Count 246 K/mm3 (150-400); RDW Coefficient Variation 12.9 % (11.7-14.2); RDW Standard Deviation 42.1 fL (35.1-46.3); Red Blood Cell Count 5.17 M/mm3 (3.80-5.20); White Blood Cell Count 16.32 K/mm3 (4.00-11.30)
[2022-05-29 17:41] LABS: Albumin, Blood 3.7 g/dL (3.4-5.0); Bilirubin, Total 0.2 mg/dL (0.1-1.0); Bun/Creatinine Ratio 29.1 (12.0-20.0); Calcium, Blood 8.9 mg/dL (8.5-10.1); Creatinine, Blood 0.65 mg/dL (0.40-1.00); Globulin, Blood 3.8 g/dL (2.2-4.0); Potassium, Blood 3.6 mmol/L (3.5-5.5); Total Protein, Blood 7.5 g/dL (6.4-8.2)
[2022-05-29 17:46] LABS: International Normalized Ratio 1.09; Prothrombin Time Results 11.4 Sec (9.7-11.5)
[2022-05-29 18:16] LABS: Source, Urine Straight Cath
[2022-05-29 18:19] LABS: PCO2 Arterial 40.8 mmHg (35-45); PO2 Arterial 269 mmHg (80-100); pH Blood Arterial 7.36 (7.35-7.45)
[2022-05-29 18:30] LABS: Appearance, Urine Clear (Clear); Bilirubin, Urine Neg (Neg); Blood, Urine 4+ (Neg); Color, Urine Yellow (P-Yellow); Glucose Qualitative, Urine 4+ (Neg); Ketones, Urine 1+ (Neg); Leukocyte Esterase, Urine Neg (Neg); Nitrite, Urine Neg (Neg); Protein, Urine 3+ (Neg); Urobilinogen, Urine NORM (Normal)
[2022-05-29] MEDS ORDERED: NEURONTIN300 MG PO (18:33)
[2022-05-29 18:54] LABS: Bacteria Few /hpf; Squamous Epithelial Cells Few /hpf (Few); White Blood Cells, Urine 0-2 /hpf (0-5)
[2022-05-29] MEDS ORDERED: METF500 PO (23:01)
[2022-05-29] MEDS ORDERED: DULO60 PO (23:02)
[2022-05-29] MEDS ORDERED: DRAMAMINE25 M2 PO (23:03)
[2022-05-29] MEDS ORDERED: Calcium Carbon500 MG PO (23:04)
[2022-05-29] MEDS ORDERED: LOPE2C PO (23:04)
[2022-05-29] MEDS ORDERED: DOC250 PO (23:05)
[2022-05-29] MEDS ORDERED: DOXE10 PO (23:10)
[2022-05-29] MEDS ORDERED: ONDA4ODT MM (23:12)
--- NOTE | 2022-05-29 23:55 | NUR ---
PT REMOVED FROM VENT AND EXTUBATED PER ORDER. FAMILY PRESENT IN ROOM. PT HAD ALREADY PASSED PRIOR TO EXTUBATION.
--- NOTE | 2022-05-30 00:51 | NUR ---
SUMMARY: 2127: PT ARRIVED TO UNIT. NON-RESPONSIVE TO PAINFUL STIMULI. PUPILS 4 FIXED. NO CORNEAL REFLEX. RIGHT PUPIL UNEVEN SHAPED. SCLERA EDEMA PRESENT BILATERALLY. NO COUGH, GAG OR SWALLOW NOTED. NO SPONTANOUS BREATHING OR BREATHING OVER THE VENT. AC VENT SETTIN/400/5/50%, SATS 100%. LS CLEAR. SINUS TACH ON MONITOR IN THE 110-120'S. TEMP 97.7, BEAR HUGGER ON. ABD SOFT, BT ABSENT. OG TO LIS, COFFE GROUND EMESIS NOTED. FELTON WITH CINTIA URINE. BRUISING SCATTERED ALL OVER BODY. THERE IS BRUISING MOSTLY TO THE RIGHT SHOULDER, RIGHT SIDE OF CHIN, RIGHT SIDE OF FOREHEAD, SKIN TEAR TO THE LEFT HAND, BRUISING TO LEFT KNEE. PICS WERE TAKEN AND PLACED IN CHART. BLOOD PRESSURE WAS 247/160 THEN DROPPED DOWN TO 156/103. HR WAS 131 AND SLOWLY BEGAN TO DROP WELL. 2210: 1MG OF MORPHINE WAS GIVEN. CALLED BRIANA SON ASKING IF THEY PLAN TO RETURN THE HOSPTIAL TONIGHT. THEY PLAN ON ARRIVING SHORTLY. 2244: FAMILY ARRIVED TO ROOM, BEAR HUGGER TURNED OFF DUE TO TEMP 98.1. DAUGHTER ADRIAN VERBALIZED SITUATION AND FRUSTRATION ON NOT KNOWING WHAT HAPPENED OR WHAT MAY HAVE CAUSED THIS. SHE STATES SHE WISH SHE WOULD KNOW. GAVE ALL THE INFORMATION WE KNEW ABOUT THE SITUATION. SHE STATES SHE IS NOT SURE WHAT TO DO ON EXTUBATION. ENCOURAGE HER TO TAKE HER TIME. SON ASKED FOR MONITORING TO LEFT ON SO HE CAN WATCH HER VITALS. EXPLAINED THE NUMBERS TO HIM, INFORMING HIM OF HER CURRENT CONDITION AND HOW SHE CAN DECLINE ON HER OWN AT THIS POINT. 2318: FAMILY ASKING QUESTIONS IN REGARDING HER SITUATION AND IF THERE IS ANY CHANCE. INFORMED THEM THAT HER BRAIN WILL CONTINUE TO HERNIATE TILL THE BODY SHUTS DOWN. THEY VERBALIZED UNDERSTANDING AND ASKED FOR HER TO BE MADE COMFORTABLE. INFORMED THEM TO CALL ANY OTHER FAMILY THAT MIGHT WANT TO SAY GOOD BYE AT THIS POINT. THEY CALLED SEVERAL OTHER FAMILY THAT WAS ABLE TO SAY THEIR GOOD BYES OVER THE PHONE. 2333: FAMILY ASKED FOR PAIN MEDICATION TO BE GIVEN AND TO MAKE HER COMFORTABLE. PATIENT MOTTLING ARMS AND LEGS, SKIN IS COOL AND SKIN IS PALE AND WHITE. INFORMED THEM BEFORE GIVING THE MED THAT SHE IS PASSING AND ASKED IF THEY STILL WANTED ME TO GIVE IT. THEY SAID YES. GAVE 1MG OF MORPHINE. 2356: PT PASSED AT THIS TIME. CONFIREMD WITH [employer] KNOWLES. NURSING SLIVER FORMER NOTIFIED. 0010: PT EXTUBED, FAMILY IS AT BEDSIDE. PT HAD 1 GOLD RING THAT WAS GIVEN TO DAUGHTER ADRIAN ALONG WITH BAG OF ALL OF HER MEDS AND BELONGINS TO TAKE.
--- NOTE | 2022-05-30 01:17 | NUR ---
0100: FAMILY CHOOSE [facility]. FAMILY HAS LEFT. MARCO A CALLED FROM [facility] WANTING UPDATE, NO NEW UPDATES WERE GIVEN. AWAITING CLEARANCE.
== END 2022-05-29 23:36 ==
LOC: ER 16:40 → ICUW 16:41
PROVIDERS: Student in an Organized Health Care Education/Training Program; ADMIT Internal Medicine
DX: I61.9 Nontraumatic intracerebral hemorrhage, unspecified (principal); I10 Essential (primary) hypertension; E11.9 Type 2 diabetes mellitus without complications; F41.9 Anxiety disorder, unspecified; Z91.040 Latex allergy status; Z66 Do not resuscitate
CPT/HCPCS: 36415; 36600; 51702; 70450; 71045; 72125; 80047; 80053; 81001; 82803; 82947; 83605; 84484; 85014; 85025; 85610; 85730; 94002; J1953; J2270; J2543; J2704; J3370; J7030; J7050; J7060